=== PATIENT | male | born 1970 | race Caucasian/White ===

== ENCOUNTER → 2017-06-01 10:28 | Outpatient (CLI) | payer BC, SELFPAY ==
--- NOTE | 2017-06-01 10:53 | XR_ITS ---
XR chest 2V COMPARISON: None HISTORY: No history provided TECHNIQUE: PA and lateral chest FINDINGS: The lung rodriguez are well expanded and appear clear of infiltrate. There is borderline cardio megaly without evidence of failure. There is no pleural fluid. The bony thorax appears normal. IMPRESSION: Borderline cardiomegaly, no acute pathology noted
== END ==
PROVIDERS: PCP Psychiatry & Neurology Sleep Medicine; Visit Provider Family Medicine
DX: J40 Bronchitis, not specified as acute or chronic (principal)
CPT/HCPCS: 71046

== ENCOUNTER 2017-08-14 15:11 | Inpatient (IN) ==
[2017-08-14 15:39] LABS: Basophils # 0.1 K/mm3 (0-0.2); Basophils % 1.2 % (0.1-2.0); Eosinophils # 0.2 K/mm3 (0.0-0.4); Eosinophils % 2.8 % (0.1-12.0); Hematocrit 48.1 % (42.0-52.0); Hemoglobin 15.1 g/dL (14.1-18.0); Lymphocytes # 2.6 K/mm3 (0.7-4.5); Lymphocytes % 34.6 K/mm3 (10-50); Mean Corpuscular HGB Conc 31.4 g/dL (31.8-35.4); Mean Corpuscular Hemoglobin 27.6 pg (27.0-31.2); Mean Platelet Volume 8.3 fl (7.4-10.4); Monocytes # 0.4 K/mm3 (0.1-1.0); Monocytes % 4.7 % (1.7-9.3); Neutrophils # 4.3 K/mm3 (1.8-7.8); Neutrophils % 56.8 % (37.0-80.0); Platelet Count 294 K/mm3 (142-424); Red Blood Count 5.46 M/mm3 (4.60-6.20); Red Cell Distribution Width 13.8 % (11.5-17.5); White Blood Count 7.5 K/mm3 (4.8-10.8)
--- NOTE | 2017-08-14 15:41 | Emergency Department Note ---
ED Disposition Clinical Impression: Sinus tachycardia, Pericardial effusion, Pleural effusion, Pneumonia Disposition: Still a Patient Condition on Discharge: Fair Prescriptions: Bisoprol/Hydrochlorothiazide [Bisoprolol-Hctz 5-6.25 mg Tab] 1 each PO DAILY #7 tab Referrals: Kyle Bradford MD [Primary Care Provider] - - Critical Care Critical Care Time: No Attestation: On , the high probability of a clinically significant, sudden or life threatening deterioration of the following system(s) required my full and direct attention, intervention and personal management. The time I documented below is in addition to time spent performing reported procedures but includes the following listed in this critical care notation. Medical Decision Making - Oliver Inquiry Pt receiving controlled substance: No Oliver was queried for this patient: No Vital Signs: 08/14/17 15:17 08/14/17 17:12 Temperature 97.9 F Temperature Source Oral Pulse Rate [Left Radial] 118 H 117 H Respiratory Rate 20 20 Blood Pressure [Right Arm] 148/110 149/116 Blood Pressure Mean [Right Arm] 122 127 Blood Pressure Source [Right Arm] Automatic Cuff Automatic Cuff Blood Pressure Position [Right Arm] Sitting Sitting 02 Sat by Pulse Oximetry 95 92 L Oxygen Delivery Method Room Air Room Air - Lab Data Lab Results 08/14/17 15:19: WBC 7.5, RBC 5.46, Hgb 15.1, Hct 48.1, MCV 88.0, MCH 27.6, MCHC 31.4 L, RDW 13.8, Plt Count 294, MPV 8.3, Neut % (Auto) 56.8, Lymph % (Auto) 34.6, [place] % (Auto) 4.7, Eos % (Auto) 2.8, Baso % (Auto) 1.2, Neut # (Auto) 4.3 , Lymph # (Auto) 2.6, [place] # (Auto) 0.4, Eos # (Auto) 0.2, Baso # (Auto) 0.1 08/14/17 15:19: Sodium 143, Potassium 4.5, Chloride 108 H, Carbon Dioxide 26, Anion Gap 13.5, BUN 15, Creatinine 1.51 H, Estimated Creat Clear 68, Estimated GFR 50 L, Est GFR ( Amer) 61, Glucose 127 H, Calcium 9.2, Troponin I < 0.02 08/14/17 15:19: D-Dimer 660 H* 08/14/17 15:19: Sodium 143, Potassium 4.6, Chloride 108 H, Carbon Dioxide 26, Anion Gap 13.6, BUN 15, Creatinine 1.48 H, Estimated Creat Clear 69, Estimated GFR 52 L, Est GFR ( Amer) 62, Glucose 124 H, Calcium 8.9, Total Bilirubin 0.7, AST 22, ALT 37, Alkaline Phosphatase 90, Total Creatine Kinase 96 , CK-MB (CK-2) 1.9, CK-MB (CK-2) Rel Index 2.0, Troponin I < 0.02, Total Protein 7.1, Albumin 3.8, Globulin 3.3 H, Albumin/Globulin Ratio 1.2, TSH 4.52 H , Free T4 1.03, Plasma/Serum Alcohol < 3 08/14/17 15:19: B-Natriuretic Peptide 1970 H 08/14/17 15:36: Specimen Source Right radial, O2 % room air, ABG pH 7.47 H, ABG pCO2 28.4 L, ABG pO2 61.0 L, ABG HCO3 20.1 L, ABG Total CO2 21.0 L, ABG O2 Saturation 92, ABG Base Excess -3.6 L, New Test Acceptable 08/14/17 15:45: Urine Color Yellow, Urine Appearance Clear, Urine pH 6.0, Ur Specific [place] >= 1.030, Urine Protein 2+, Urine Glucose (UA) Negative, Urine Ketones Negative, Urine Blood 1+, Urine Nitrate Negative, Urine Bilirubin Negative, Urine Urobilinogen 0.2, Ur Leukocyte Esterase Negative, Urine RBC Occasional, Urine WBC Occasional, Ur Squamous Epith Cells Occasional, Urine Bacteria 2+, Fine Granular Casts Occasional, Urine Mucus 3+ 08/14/17 15:45: Urine Opiates Screen Negative, Urine Methadone Screen Negative, Ur Barbituates Screen Negative, Ur Phencyclidine Scrn Negative, Ur Amphetamines Screen Negative, U Benzodiazepines Scrn Negative, Urine Cocaine Screen Negative , U Marijuana (THC) Screen Negative Result diagrams: 08/14/17 15:19 08/14/17 15:19 Orders (Tests/Meds): ED MEDICATIONS Generic Name Dose Route Start Last Admin Trade Name Freq PRN Reason Stop Dose Admin Bisoprolol Fumarate 5 mg 08/15/17 09:00 07/04/18 18:06 Zebeta 5mg Tablet PO 09/14/17 08:59 5 mg DAILY ARIEL Administration Discontinued Medications Generic Name Dose Route Start Last Admin Trade Name Quan PRN Reason Stop Dose Admin Furosemide 20 mg 08/14/17 17:35 08/14/17 18:02 Lasix 20mg/2ml Vial IV 08/14/17 17:36 20 mg ONCE ONE Administration Sodium Chloride 1,000 mls @ 999 mls/hr 08/14/17 16:15 Sod Chlor 0.9% 1000ml Bag IV 08/14/17 17:15 .Q1H1M ARIEL Sodium Chloride 1,000 mls @ 500 mls/hr 08/14/17 16:30 08/14/17 16:26 Sod Chlor 0.9% 1000ml Bag IV 09/13/17 16:29 500 mls/hr .Q2H ARIEL Administration Iopamidol 75 ml 08/14/17 17:58 08/14/17 17:59 [id number]; 75ml Vial IV 08/14/17 17:59 75 ml ONCE ONE Administration Sodium Chloride 10 ml 08/14/17 17:58 08/14/17 17:59 Rad-Saline Flush 10ml Syringe IV 08/14/17 17:59 10 ml ONCE ONE Administration ORDERS Category Date Time Status Urine Culture Stat Micro 08/14/17 15:45 Received 12-lead EKG Request [ECG Request by /Cherise] Stat Y 08/14/17 17:21 Ordered - CT Data CT Scan: Chest Time Received: 19:[address] Reviewed: Yes: I have viewed the radiologist's interpretation Preliminary Findings: Abnormal Findings Narrative: See official report. - ECG Data Tracing #1 Sinus tachycardia 117 left atrial enlargement left axis deviation baseline artifact Q waves in anterior leads with nonspecific T-wave changes. ECG initial impression date: 08/14/17 ECG initial impression time: 15:20 Medical Decision Narrative: [address] Wilson the on-call grocery clerk marking and reviewed the patient clinical presentation lab findings including elevated d-dimer and BNP . Dr. Wilson reviewed the EKGs and he believes that the patient is in sinus tachycardia. Dr Wilson, advised that the patient receives Lasix IV and started on bisoprolol for blood pressure and rate control. 1900 reviewed the results of the CT report of Dr. Wilson who advised the patient to for admission and possible right and left heart catheterization in the morning for pericarditis and myocarditis. [address] [facility] property preservation specialist and who agreed to admit the patient and consult Dr Wilson for cardiac catheterization. 1919 I spoke with the patient and his sister who was agreeable for admission and further medical management and investigative work. Resp/SOB HPI - General Chief Complaint: Shortness of Breath/Dyspnea Stated Complaint: SOB,Heart beat high Time Seen by Provider: 08/14/17 15:20 Mode of Arrival: Ambulatory Limitations: No Limitations Description of Symptoms (Recalled from ER Triage Doc. by RN): Pt states that he has a 120 heart rate and feeling SOA, states this has been happening for 2 months. 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 Some nausea at times, no appetite with sweats. Girlfriend states that she gave him her stroke pill nitro and it did not help - History of Present Illness 46 years old white male former with no significant past medical history. For the past 6 weeks he has been experiencing intermittent episodes of dyspnea, cold sweats, and palpitations. These episodes are triggered by exertion and working in the hot and humid weather. He does not feel the palpitation but he was told about it when he had similar episode and was seen by his primary care physician and told he was having anxiety. Denies having chest pain abdominal pain nausea vomiting diarrhea. Denies having hemoptysis hematemesis coffee- ground emesis bleeding per rectum or melanotic stool. MD Complaint: shortness of breath Onset (ago): minute(s) Consistency/Duration: intermittent Relieving factors: rest Exacerbating factors: exertion Associated symptoms: denies other symptoms, palpitations Treatment prior to arrival: none - Related Data Home Medications Medication Instructions Recorded Confirmed Triamcinolone Acetonide [Nasal 16.9 ml NS DAILY 08/14/17 08/14/17 Allergy] Previous Rx's Medication Instructions Recorded Bisoprol/Hydrochlorothiazide 1 each PO DAILY #7 tab 08/14/17 [Bisoprolol-Hctz 5-6.25 mg Tab] Allergies Allergy/AdvReac Type Severity Reaction Status Date / Time No Known Allergies Allergy Verified 08/14/17 15:27 [facility] History I have reviewed the patient's past medical history: Yes Medical History: Denies:: Diabetes Mellitus Type 1, Diabetes Mellitus Type 2 - Social History Smoking Status: Former smoker Smoking End Date: 3 years ago Alcohol Intake: current Alcohol Intake Frequency:: holidays/special occasions only - Psychiatric History Expresses thoughts of harming self/others: None Suicide Plan Description: No Plan ROS Obtained: Yes All systems reviewed & no additional complaints Physical Exam - General General appearance: alert, in no apparent distress - Head Head exam: atraumatic, normocephalic, normal inspection - Eye Eye exam: Present: normal appearance, PERRL, EOMI - ENT ENT exam: Present: normal exam, normal oropharynx, mucous membranes moist, TM's normal bilaterally, normal external ear exam - Neck Neck exam: Present: normal inspection, full ROM, trachea midline. Absent: meningismus, lymphadenopathy - Chest Chest inspection: Present: normal inspection, symmetric chest wall rise. Absent : tenderness - Respiratory Respiratory exam: Present: normal lung sounds bilaterally. Absent: respiratory distress - Cardiovascular Cardiovascular exam: Present: normal rhythm, tachycardia. Absent: JVD - Abdominal Exam Abdominal exam: Present: soft, normal bowel sounds. Absent: distention, tenderness, guarding - Extremities Exam Extremities exam: Present: normal inspection, full ROM, normal capillary refill. Absent: calf tenderness - Back Exam Back exam: Present: normal inspection. Absent: tenderness - Neurological Exam Neurological exam: Present: alert, oriented X3, CN II-XII intact, normal gait, motor sensory deficit - Psychiatric Psychiatric exam: Present: normal affect, normal mood - Skin Skin exam: Present: warm, dry, intact, normal color - Lymphatic Lymphatic Findings: no adenopathy
[2017-08-14 15:53] LABS: Anion Gap 13.5 mEq/L (5-15); Blood Urea Nitrogen 15 mg/dL (7-18); Calcium 9.2 mg/dL (8.5-10.1); Carbon Dioxide 26 mmol/L (21.0-32.0); Chloride 108 mmol/L (98-107); Glucose 127 mg/dL (74-106); Potassium 4.5 mmoL/L (3.5-5.1); Sodium 143 mmol/L (136-145)
[2017-08-14 15:56] LABS: Microscopic, Urine URINE MICROSCOPIC (MICROSCOPIC)
[2017-08-14 15:58] LABS: Appearance,Urine CLEAR (Clear); Bilirubin,Urine Negative (Negative); Blood, Urine 1+ (Negative); Color,Urine YELLOW (Yellow); Glucose,Urine (UA) Negative (Negative); Ketones,Urine Negative (Negative); Leukocyte Esterase,Urine Negative (Negative); Protein,Urine 2+ (Negative); Specific Gravity, Urine >= 1.030 (1.005-1.030); Urobilinogen,Urine 0.2 EU/dl (0.2)
[2017-08-14 16:08] LABS: Amphetamine/Metha Screen,Urine Negative ng/mL (<1000); Barbiturates Screen,Urine Negative ng/mL (<200); Benzodiazepines Screen,Urine Negative ng/mL (<200); Cannabinoid Screen,Urine Negative ng/mL (<50); Cocaine Screen,Urine Negative ng/mL (<300); Methadone Screen,Urine Negative ng/mL (<300); Opiate Screen,Urine Negative ng/mL (<300); Phencyclidine Screen,Urine Negative ng/mL (<25)
[2017-08-14 16:09] LABS: Mucus,Urine 3+ /lpf; Squamous Epithelial Cell,Urine Occasional #/hpf (0-5); WBC,Urine Occasional #/hpf (0-3)
[2017-08-14 16:10] LABS: Bacteria,Urine 2+ /lpf; Fine Granular Casts,Urine Occasional #/lpf (0); RBC,Urine Occasional #/hpf (0-3)
[2017-08-14 16:18] LABS: Alanine Aminotransferase 37 U/L (12-78); Albumin Level 3.8 gm/dL (3.4-5.0); Albumin/Globulin Ratio 1.2 (1.1-1.8); Alkaline Phosphatase 90 U/L (46-116); Anion Gap 13.6 mEq/L (5-15); Aspartate Amino Transferase 22 U/L (15-37); Bilirubin,Total 0.7 mg/dL (0.2-1.0); Blood Urea Nitrogen 15 mg/dL (7-18); Calcium 8.9 mg/dL (8.5-10.1); Carbon Dioxide 26 mmol/L (21.0-32.0); Chloride 108 mmol/L (98-107); Creatine Kinase 96 U/L (39-308); Free T4 (Free Thyroxine) 1.03 ng/dl (0.76-1.46); Globulin 3.3 gm/dl (1.3-3.2); Glucose 124 mg/dL (74-106); Potassium 4.6 mmoL/L (3.5-5.1); Sodium 143 mmol/L (136-145); Thyroid Stimulating Hormone 4.52 uIU/ml (0.358-3.740); Total Protein,Serum 7.1 gm/dL (6.4-8.2)
[2017-08-14 16:19] LABS: Ethyl Alcohol < 3 mg/dL (0-99)
[2017-08-14 17:34] LABS: ABG Base Excess -3.6 mmol/L (-2.4-2.3); ABG HCO3 20.1 mmhg (22.0-26.0); ABG Oxygen Saturation 92 % (90-100); ABG PCO2 28.4 mmhg (35.0-45.0); ABG PH 7.47 mmol/L (7.35-7.45)
[2017-08-14 17:35] LABS: Oxygen room air %
[2017-08-14 17:36] LABS: Allen's Test Acceptable
--- NOTE | 2017-08-14 22:39 | Progress Note ---
Internal Medicine - PN: Subj *Date: 08/14/17 *Time: 22:35 Interval history: This 46-year-old white male was admitted through the emergency room with some rather vague symptoms. He has not been feeling well for months. He had an episode of pneumonia back in March. He has a 16 pound unexplained weight loss. He tires easily with exertion. He has not had recent cough or congestion or sputum production. He has not had fever. He has not traveled outside the country. Others in his family have not been ill. He has felt some GI distress. His bowels have been normal. He has had no vomiting or diarrhea. His workup in the emergency room showed some patchy infiltrates in the lungs. There was also evidence of a mild pericardial effusion. During the exam he states that he feels cold. Exam Vital signs and Labs for Last 24 Hours: Temp Pulse Resp BP Pulse Ox 97.8 F 106 H 18 154/83 97 08/14/17 20:30 08/14/17 20:30 08/14/17 20:30 08/14/17 20:30 08/14/17 20:30 Laboratory Results - last 24 hr 08/14/17 15:19: WBC 7.5, RBC 5.46, Hgb 15.1, Hct 48.1, MCV 88.0, MCH 27.6, MCHC 31.4 L, RDW 13.8, Plt Count 294, MPV 8.3, Neut % (Auto) 56.8, Lymph % (Auto) 34.6, [place] % (Auto) 4.7, Eos % (Auto) 2.8, Baso % (Auto) 1.2, Neut # (Auto) 4.3 , Lymph # (Auto) 2.6, [place] # (Auto) 0.4, Eos # (Auto) 0.2, Baso # (Auto) 0.1 08/14/17 15:19: Sodium 143, Potassium 4.5, Chloride 108 H, Carbon Dioxide 26, Anion Gap 13.5, BUN 15, Creatinine 1.51 H, Estimated Creat Clear 68, Estimated GFR 50 L, Est GFR ( Amer) 61, Glucose 127 H, Calcium 9.2, Troponin I < 0.02 08/14/17 15:19: D-Dimer 660 H* 08/14/17 15:19: Sodium 143, Potassium 4.6, Chloride 108 H, Carbon Dioxide 26, Anion Gap 13.6, BUN 15, Creatinine 1.48 H, Estimated Creat Clear 69, Estimated GFR 52 L, Est GFR ( Amer) 62, Glucose 124 H, Calcium 8.9, Total Bilirubin 0.7, AST 22, ALT 37, Alkaline Phosphatase 90, Total Creatine Kinase 96 , CK-MB (CK-2) 1.9, CK-MB (CK-2) Rel Index 2.0, Troponin I < 0.02, Total Protein 7.1, Albumin 3.8, Globulin 3.3 H, Albumin/Globulin Ratio 1.2, TSH 4.52 H , Free T4 1.03, Plasma/Serum Alcohol < 3 08/14/17 15:19: B-Natriuretic Peptide 1970 H 08/14/17 15:36: Specimen Source Right radial, O2 % room air, ABG pH 7.47 H, ABG pCO2 28.4 L, ABG pO2 61.0 L, ABG HCO3 20.1 L, ABG Total CO2 21.0 L, ABG O2 Saturation 92, ABG Base Excess -3.6 L, New Test Acceptable 08/14/17 15:45: Urine Color Yellow, Urine Appearance Clear, Urine pH 6.0, Ur Specific [place] >= 1.030, Urine Protein 2+, Urine Glucose (UA) Negative, Urine Ketones Negative, Urine Blood 1+, Urine Nitrate Negative, Urine Bilirubin Negative, Urine Urobilinogen 0.2, Ur Leukocyte Esterase Negative, Urine RBC Occasional, Urine WBC Occasional, Ur Squamous Epith Cells Occasional, Urine Bacteria 2+, Fine Granular Casts Occasional, Urine Mucus 3+ 08/14/17 15:45: Urine Opiates Screen Negative, Urine Methadone Screen Negative, Ur Barbituates Screen Negative, Ur Phencyclidine Scrn Negative, Ur Amphetamines Screen Negative, U Benzodiazepines Scrn Negative, Urine Cocaine Screen Negative , U Marijuana (THC) Screen Negative 08/14/17 20:52: Troponin I 0.03 I & O for Last 24 hours: Intake & Output 08/12/17 08/13/17 08/14/17 08/15/17 11:59 11:59 11:59 11:59 Weight 172 lb - Constitutional no acute distress Comments: He appears pale and a bit clammy. - *Routine HEENT Exam Head: Present: normocephalic Eye: Present: PERRL ENT: Present: mucous membranes moist - *Routine Neck Exam Absent: thyromegaly - *Routine Respiratory Exam Present: decreased breath sounds, CTA bilaterally. Absent: rales, wheezes - *Routine Cardiovascular Exam Present: RRR. Absent: murmur, rubs - *Routine Abdominal Exam Present: soft, normoactive bowel sounds. Absent: tenderness - *Routine Extremities Exam Absent: edema - *Routine Skin Exam Comments: A little cool and clammy - *Routine Neurological Exam Present: alert, oriented X3, normal speech. Absent: sensory deficit, motor deficit, altered mental status, tremors - Routine Psychiatric Exam Present: anxious Assessment and Plan (1) Hypothyroidism Current visit: Yes Status: Acute Category: Medical Code(s): E03.9 - Hypothyroidism, unspecified (2) Weight loss Current visit: Yes Status: Acute Category: Medical Code(s): R63.4 - Abnormal weight loss - Assessment and plan all Dx Assessment and Plan for all problems:: Cardiology evaluation. GI studies also needed regarding weight loss. Liver functions WNL. Will check Amylase, lipase, PSA.
[2017-08-14 23:37] LABS: Amylase 45 U/L (25-125); Lipase 147 u/L (73-393)
[2017-08-15 06:11] LABS: Anion Gap 13.2 mEq/L (5-15); Chol/HDL Ratio 5.4 (1-3.5); Potassium 4.2 mmoL/L (3.5-5.1)
--- NOTE | 2017-08-15 07:25 | Pharmacy Consult Notes ---
[facility] Pharmacy VTE Monitoring - Patient Demographics Admission date: 08/14/17 Report Date: 08/15/17 Time: 07:25 Allergies/Adverse Reactions: Patient Allergies No Known Allergies Allergy (Verified 08/14/17 15:27) Height: 1.83 m Weight: 78.018 kg Patient Problems: Current Active Problems Sinus tachycardia (Acute) Pericardial effusion (Acute) Pleural effusion (Acute) Pneumonia (Acute) Hypothyroidism (Acute) Weight loss (Acute) - VTE Risk Labs: VTE Related Lab Results Hgb 15.1 g/dL (14.1-18.0) 08/14/17 15:19 Hct 48.1 % (42.0-52.0) 08/14/17 15:19 Plt Count 294 K/mm3 (142-424) 08/14/17 15:19 BUN 17 mg/dL (7-18) 08/15/17 05:34 Creatinine 1.40 mg/dL (0.70-1.30) H 08/15/17 05:34 Estimated Creat Clear 74 mL/min (0-300) 08/15/17 05:34 Was VTE Risk Assessment Performed: Yes VTE Score: 3 VTE Risk Level: Low Risk - Prophylaxis VTE Prophylaxis Ordered?: Yes Types of VTE Prophylaxis: TEDS Knee High Location of Applied Device: Bilateral Lower Extremeties - VTE Diagnosis Confirmed Treatment or plan recommended: Continue Current Treatment
--- NOTE | 2017-08-15 08:04 | Consult Report ---
History of Present Illness Consult date: 08/15/17 Requesting physician: Kyle Bradford Consult reason: shortness of breath Chief complaint: SOA Additional Medical History:: 1. History of tobacco use, 1.5 packs per day 25 years, discontinued about 2014 2. Strong family history of coronary artery disease and siblings in their 40s and parents in their 40s 3. Unexplained weight loss 2018, greater than 15 pounds History of present illness: 46-year-old white male presented to the emergency department for 2 month history of increasing shortness of breath with exertional component. Patient also with nocturnal dyspnea and diaphoresis both at rest and with exertion. He has noticed about a 15 pound weight loss or more over the last couple months, unintentionally. He denies any chills, diarrhea, nausea or vomiting. Patient discontinued smoking 3 years ago but has a strong family history of coronary artery disease. He denies any chest pain but does note some pressure or tightness at times. Denies alcohol use in the last 6 weeks and denies any history of IV drug use. Patient was admitted for further evaluation. The ER physician did contact Dr. Wilson who recommended admission with plans for right and left heart catheterization. Patient's troponins have returned normal with some question of pericardial effusion and pneumonia on CT of the chest. EKG showed sinus tachycardia without acute ST segment changes. Some improvement in SOA after the lasix but still noted to have some nocturnal dyspnea last evening. [facility] History Medical History: Denies:: Cancer, Diabetes Mellitus Type 1, Diabetes Mellitus Type 2, MRSA Other Medical History: Reports: Arthritis Other Surgeries: Yes: No Previous Surgery Amputation: No Fractures: No - *Social History Educational Level: Attended College Smoking Status: Former smoker Tobacco Type: cigarettes # Packs/Day (cigarettes): 1 #Yrs smoked (if former smoker): 23 Smoking End Date: 2014 Alcohol Intake: current Alcohol Intake Frequency:: other Occupational Status: employed Housing: other Household Members: children - Psychiatric History Expresses thoughts of harming self/others: None Suicide Plan Description: No Plan *Family Hx:: Cancer, Coronary Artery Disease, Hyperlipidemia, Hypertension, Stroke Meds Home Medications Medication Instructions Recorded Confirmed Type Aspirin 81 mg PO DAILY 08/14/17 08/14/17 History Montelukast Sodium [Montelukast 10 mg PO DAILY 08/14/17 08/14/17 History 10mg Tab] Triamcinolone Acetonide [Nasal 16.9 ml NS DAILY 08/14/17 08/14/17 History Allergy] Allergies Allergy/AdvReac Type Severity Reaction Status Date / Time No Known Allergies Allergy Verified 08/14/17 15:27 Review of Systems - *Cardiovascular Reports shortness of breath, Reports shortness of breath with activity - *Respiratory Reports shortness of breath, Reports shortness of breath with activity - *Gastrointestinal Denies abdominal pain, Denies loose stools - *Genitourinary Denies difficulty urinating - *Musculoskeletal Denies abnormal walking Exam Vital signs and Labs for Last 24 Hours: Temp Pulse Resp BP Pulse Ox 98.1 F 94 H 18 134/95 96 08/15/17 07:44 08/15/17 07:44 08/15/17 07:44 08/15/17 07:44 08/15/17 07:44 Laboratory Results - last 24 hr 08/14/17 15:19: WBC 7.5, RBC 5.46, Hgb 15.1, Hct 48.1, MCV 88.0, MCH 27.6, MCHC 31.4 L, RDW 13.8, Plt Count 294, MPV 8.3, Neut % (Auto) 56.8, Lymph % (Auto) 34.6, [place] % (Auto) 4.7, Eos % (Auto) 2.8, Baso % (Auto) 1.2, Neut # (Auto) 4.3 , Lymph # (Auto) 2.6, [place] # (Auto) 0.4, Eos # (Auto) 0.2, Baso # (Auto) 0.1 08/14/17 15:19: Sodium 143, Potassium 4.5, Chloride 108 H, Carbon Dioxide 26, Anion Gap 13.5, BUN 15, Creatinine 1.51 H, Estimated Creat Clear 68, Estimated GFR 50 L, Est GFR ( Amer) 61, Glucose 127 H, Calcium 9.2, Troponin I < 0.02 08/14/17 15:19: D-Dimer 660 H* 08/14/17 15:19: Sodium 143, Potassium 4.6, Chloride 108 H, Carbon Dioxide 26, Anion Gap 13.6, BUN 15, Creatinine 1.48 H, Estimated Creat Clear 69, Estimated GFR 52 L, Est GFR ( Amer) 62, Glucose 124 H, Calcium 8.9, Total Bilirubin 0.7, AST 22, ALT 37, Alkaline Phosphatase 90, Total Creatine Kinase 96 , CK-MB (CK-2) 1.9, CK-MB (CK-2) Rel Index 2.0, Troponin I < 0.02, Total Protein 7.1, Albumin 3.8, Globulin 3.3 H, Albumin/Globulin Ratio 1.2, TSH 4.52 H , Free T4 1.03, Plasma/Serum Alcohol < 3 08/14/17 15:19: B-Natriuretic Peptide 1970 H 08/14/17 15:36: Specimen Source Right radial, O2 % room air, ABG pH 7.47 H, ABG pCO2 28.4 L, ABG pO2 61.0 L, ABG HCO3 20.1 L, ABG Total CO2 21.0 L, ABG O2 Saturation 92, ABG Base Excess -3.6 L, New Test Acceptable 08/14/17 15:45: Urine Color Yellow, Urine Appearance Clear, Urine pH 6.0, Ur Specific [place] >= 1.030, Urine Protein 2+, Urine Glucose (UA) Negative, Urine Ketones Negative, Urine Blood 1+, Urine Nitrate Negative, Urine Bilirubin Negative, Urine Urobilinogen 0.2, Ur Leukocyte Esterase Negative, Urine RBC Occasional, Urine WBC Occasional, Ur Squamous Epith Cells Occasional, Urine Bacteria 2+, Fine Granular Casts Occasional, Urine Mucus 3+ 08/14/17 15:45: Urine Opiates Screen Negative, Urine Methadone Screen Negative, Ur Barbituates Screen Negative, Ur Phencyclidine Scrn Negative, Ur Amphetamines Screen Negative, U Benzodiazepines Scrn Negative, Urine Cocaine Screen Negative , U Marijuana (THC) Screen Negative 08/14/17 20:52: Troponin I 0.03 08/14/17 23:05: Amylase 45, Lipase 147 08/15/17 01:30: Troponin I 0.02 08/15/17 05:34: Sodium 136, Potassium 4.2, Chloride 105, Carbon Dioxide 22, Anion Gap 13.2, BUN 17, Creatinine 1.40 H, Estimated Creat Clear 74, Estimated GFR 55 L, Est GFR ( Amer) 67, Glucose 117 H, Calcium 9.0, Magnesium 2.1, Triglycerides 156, Cholesterol 151, LDL Cholesterol 92, VLDL Cholesterol 31, HDL Cholesterol 28, Cholesterol/HDL Ratio 5.4 H I & O for Last 24 hours: Intake & Output 08/12/17 08/13/17 08/14/17 08/15/17 11:59 11:59 11:59 11:59 Output Total 1100 / 1100 Balance -1100 / -1100 Weight 172 lb - *Routine Neck Exam Absent: JVD, carotid bruit - *Routine Respiratory Exam Present: rales - *Routine Cardiovascular Exam Present: RRR. Absent: murmur, gallop, rubs - *Routine Abdominal Exam Absent: tenderness - *Routine Extremities Exam Absent: edema - *Routine Neurological Exam Present: alert, oriented X3, moving all extremities Assessment and Plan (1) Hypothyroidism Current visit: Yes Status: Acute Category: Medical Code(s): E03.9 - Hypothyroidism, unspecified (2) Weight loss Current visit: Yes Status: Acute Category: Medical Code(s): R63.4 - Abnormal weight loss (3) PATEL (dyspnea on exertion) Current visit: Yes Status: Acute Category: Medical Code(s): R06.09 - Other forms of dyspnea (4) Paroxysmal nocturnal dyspnea Current visit: Yes Status: Acute Category: Medical Code(s): R06.00 - Dyspnea, unspecified (5) Pericardial effusion Current visit: Yes Status: Acute Category: Medical Code(s): I31.3 - Pericardial effusion (noninflammatory) (6) Sinus tachycardia Current visit: Yes Status: Acute Category: Medical Code(s): R00.0 - Tachycardia, unspecified - Assessment and plan all Dx Assessment and Plan for all problems:: 1. Will obtain an echocardiogram to evaluate left ventricular size, function and pericardial effusion with possible tamponade physiology. 2. In light of the patient's cardiac risk factors including 40 year pack history and strong family history of heart disease in their 40s in light of the patient's exertional dyspnea and nocturnal dyspnea, would recommend proceeding with right and left heart catheterization for further evaluation. 3. Pt is on antibiotics for infiltrate on CXR and CT. Afebrile this admission.
--- NOTE | 2017-08-15 08:31 | History & Physical Report ---
*Admission Date: 08/14/17 <Sonam Parnell 08/15/17 08:35> *Chief complaint: shortness of breath <Sonam Parnell 08/15/17 08:35> *History of present illness: Mr. Villegas is a 46-year-old white male who was admitted through the emergency room with some rather vague symptoms. He has not been feeling well for months. He had an episode of pneumonia back in March. He has a 16 pound unexplained weight loss. He tires easily with exertion. He has not had recent cough or congestion or sputum production but he has been SOA. He has not had fever. He has not traveled outside the country. Others in his family have not been ill. He has felt some GI distress. His bowels have been normal. He has had no vomiting or diarrhea. His workup in the emergency room showed some patchy infiltrates in the lungs. There was also evidence of a mild pericardial effusion. He was admitted for further evaluation and treatment. <Sonam Parnell 08/15/17 08:35> [facility] History Medical History: Denies:: Cancer, Diabetes Mellitus Type 1, Diabetes Mellitus Type 2, MRSA < Sonam Parnell 08/15/17 08:35> Other Medical History: Reports: Arthritis <Sonam Parnell 08/15/17 08:35> Comment: allergies <Sonam Parnell 08/15/17 08:35> Other Surgeries: Yes: No Previous Surgery <Sonam Parnell 08/15/17 08:35> Amputation: No <Sonam Parnell 08/15/17 08:35> Fractures: No <Sonam Parnell 08/15/17 08:35> - *Social History Educational Level: Attended College <Sonam Parnell 08/15/17 08:35> Smoking Status: Former smoker <Sonam Parnell 08/15/17 08:35> Tobacco Type: cigarettes <Sonam Parnell 08/15/17 08:35> # Packs/Day (cigarettes): 1 <Sonam Parnell 08/15/17 08:35> #Yrs smoked (if former smoker): 23 <Sonam Parnell 08/15/17 08:35> Smoking End Date: 2014 <Sonam Parnell 08/15/17 08:35> Alcohol Intake: current <Sonam Parnell 08/15/17 08:35> Alcohol Intake Frequency:: other <Rg Parnell08/15/17 08:35> Occupational Status: employed <Sonam Parnell 08/15/17 08:35> Housing: other <Rg Parnella 08/15/17 08:35> Household Members: children <Sonam Parnell 08/15/17 08:35> - Psychiatric History Expresses thoughts of harming self/others: None <Sonam Parnell 08/15/17 08: 35> Suicide Plan Description: No Plan <Sonam Parnell 08/15/17 08:35> *Family Hx:: Cancer, Coronary Artery Disease, Hyperlipidemia, Hypertension, Stroke <Rg Parnella 08/15/17 08:35> Review of Systems - Constitutional Reports weakness, Reports weight loss <Rg Parnella 08/15/17 08:35> - Eyes Denies blurry vision, Denies double vision <Rg Parnella 08/15/17 08:35> - ENT Denies nasal congestion, Denies sore throat <Rg Parnella 08/15/17 08:35> - *Cardiovascular Reports shortness of breath with activity, Denies chest pain, Denies generalized swelling <ParmjitSonam 08/15/17 08:35> - *Respiratory Reports shortness of breath, Denies chest congestion, Denies cough <Parmjit Sonam 08/15/17 08:35> - *Gastrointestinal Denies abdominal pain, Denies loose stools, Denies nausea, Denies vomiting < ParmjitSonam 08/15/17 08:35> - *Genitourinary Denies difficulty urinating, Denies painful urination <ParmjitSonam 08:35> - *Musculoskeletal Denies joint pain <ParmjitSonam 08/15/17 08:35> - *Neurologic Reports weakness, Denies abnormal walking, Denies headache(s), Denies dizziness <Rg Parnella 08/15/17 08:35> Meds Home Medications Medication Instructions Recorded Confirmed Type Triamcinolone Acetonide [Nasal 1 spray NS DAILY 08/14/17 08/15/17 History Allergy] <Kyle Bradford - 08/15/17 15:00> Allergies Allergy/AdvReac Type Severity Reaction Status Date / Time No Known Allergies Allergy Verified 08/14/17 15:27 <Kyle Bradford - 08/15/17 15:00> Exam Vital signs and Labs for Last 24 Hours: Temp Pulse Resp BP Pulse Ox 98.1 F 83 16 118/84 97 08/15/17 07:44 08/15/17 14:41 08/15/17 13:20 08/15/17 13:20 08/15/17 13:20 Laboratory Results - last 24 hr 08/14/17 15:19: WBC 7.5, RBC 5.46, Hgb 15.1, Hct 48.1, MCV 88.0, MCH 27.6, MCHC 31.4 L, RDW 13.8, Plt Count 294, MPV 8.3, Neut % (Auto) 56.8, Lymph % (Auto) 34.6, [place] % (Auto) 4.7, Eos % (Auto) 2.8, Baso % (Auto) 1.2, Neut # (Auto) 4.3 , Lymph # (Auto) 2.6, [place] # (Auto) 0.4, Eos # (Auto) 0.2, Baso # (Auto) 0.1 08/14/17 15:19: Sodium 143, Potassium 4.5, Chloride 108 H, Carbon Dioxide 26, Anion Gap 13.5, BUN 15, Creatinine 1.51 H, Estimated Creat Clear 68, Estimated GFR 50 L, Est GFR ( Amer) 61, Glucose 127 H, Calcium 9.2, Troponin I < 0.02 08/14/17 15:19: D-Dimer 660 H* 08/14/17 15:19: Sodium 143, Potassium 4.6, Chloride 108 H, Carbon Dioxide 26, Anion Gap 13.6, BUN 15, Creatinine 1.48 H, Estimated Creat Clear 69, Estimated GFR 52 L, Est GFR ( Amer) 62, Glucose 124 H, Calcium 8.9, Total Bilirubin 0.7, AST 22, ALT 37, Alkaline Phosphatase 90, Total Creatine Kinase 96 , CK-MB (CK-2) 1.9, CK-MB (CK-2) Rel Index 2.0, Troponin I < 0.02, Total Protein 7.1, Albumin 3.8, Globulin 3.3 H, Albumin/Globulin Ratio 1.2, TSH 4.52 H , Free T4 1.03, Plasma/Serum Alcohol < 3 08/14/17 15:19: B-Natriuretic Peptide 1970 H 08/14/17 15:36: Specimen Source Right radial, O2 % room air, ABG pH 7.47 H, ABG pCO2 28.4 L, ABG pO2 61.0 L, ABG HCO3 20.1 L, ABG Total CO2 21.0 L, ABG O2 Saturation 92, ABG Base Excess -3.6 L, New Test Acceptable 08/14/17 15:45: Urine Color Yellow, Urine Appearance Clear, Urine pH 6.0, Ur Specific [place] >= 1.030, Urine Protein 2+, Urine Glucose (UA) Negative, Urine Ketones Negative, Urine Blood 1+, Urine Nitrate Negative, Urine Bilirubin Negative, Urine Urobilinogen 0.2, Ur Leukocyte Esterase Negative, Urine RBC Occasional, Urine WBC Occasional, Ur Squamous Epith Cells Occasional, Urine Bacteria 2+, Fine Granular Casts Occasional, Urine Mucus 3+ 08/14/17 15:45: Urine Opiates Screen Negative, Urine Methadone Screen Negative, Ur Barbituates Screen Negative, Ur Phencyclidine Scrn Negative, Ur Amphetamines Screen Negative, U Benzodiazepines Scrn Negative, Urine Cocaine Screen Negative , U Marijuana (THC) Screen Negative 08/14/17 20:52: Troponin I 0.03 08/14/17 23:05: Amylase 45, Lipase 147 08/15/17 01:30: Troponin I 0.02 08/15/17 05:34: Sodium 136, Potassium 4.2, Chloride 105, Carbon Dioxide 22, Anion Gap 13.2, BUN 17, Creatinine 1.40 H, Estimated Creat Clear 74, Estimated GFR 55 L, Est GFR ( Amer) 67, Glucose 117 H, Calcium 9.0, Magnesium 2.1, Triglycerides 156, Cholesterol 151, LDL Cholesterol 92, VLDL Cholesterol 31, HDL Cholesterol 28, Cholesterol/HDL Ratio 5.4 H 08/15/17 08:30: Troponin I < 0.02 08/15/17 11:57: ABG O2 Sat (Measured) 58.3 L, POC VBG O2 Sat (Mark) 54.6 L <Suzette,Kyle Jose - 08/15/17 15:00> Temp Pulse Resp BP Pulse Ox 98.1 F 94 H 18 134/95 96 08/15/17 07:44 08/15/17 07:44 08/15/17 07:44 08/15/17 07:44 08/15/17 07:44 Laboratory Results - last 24 hr 08/14/17 15:19: WBC 7.5, RBC 5.46, Hgb 15.1, Hct 48.1, MCV 88.0, MCH 27.6, MCHC 31.4 L, RDW 13.8, Plt Count 294, MPV 8.3, Neut % (Auto) 56.8, Lymph % (Auto) 34.6, [place] % (Auto) 4.7, Eos % (Auto) 2.8, Baso % (Auto) 1.2, Neut # (Auto) 4.3 , Lymph # (Auto) 2.6, [place] # (Auto) 0.4, Eos # (Auto) 0.2, Baso # (Auto) 0.1 08/14/17 15:19: Sodium 143, Potassium 4.5, Chloride 108 H, Carbon Dioxide 26, Anion Gap 13.5, BUN 15, Creatinine 1.51 H, Estimated Creat Clear 68, Estimated GFR 50 L, Est GFR ( Amer) 61, Glucose 127 H, Calcium 9.2, Troponin I < 0.02 08/14/17 15:19: D-Dimer 660 H* 08/14/17 15:19: Sodium 143, Potassium 4.6, Chloride 108 H, Carbon Dioxide 26, Anion Gap 13.6, BUN 15, Creatinine 1.48 H, Estimated Creat Clear 69, Estimated GFR 52 L, Est GFR ( Amer) 62, Glucose 124 H, Calcium 8.9, Total Bilirubin 0.7, AST 22, ALT 37, Alkaline Phosphatase 90, Total Creatine Kinase 96 , CK-MB (CK-2) 1.9, CK-MB (CK-2) Rel Index 2.0, Troponin I < 0.02, Total Protein 7.1, Albumin 3.8, Globulin 3.3 H, Albumin/Globulin Ratio 1.2, TSH 4.52 H , Free T4 1.03, Plasma/Serum Alcohol < 3 08/14/17 15:19: B-Natriuretic Peptide 1970 H 08/14/17 15:36: Specimen Source Right radial, O2 % room air, ABG pH 7.47 H, ABG pCO2 28.4 L, ABG pO2 61.0 L, ABG HCO3 20.1 L, ABG Total CO2 21.0 L, ABG O2 Saturation 92, ABG Base Excess -3.6 L, New Test Acceptable 08/14/17 15:45: Urine Color Yellow, Urine Appearance Clear, Urine pH 6.0, Ur Specific [place] >= 1.030, Urine Protein 2+, Urine Glucose (UA) Negative, Urine Ketones Negative, Urine Blood 1+, Urine Nitrate Negative, Urine Bilirubin Negative, Urine Urobilinogen 0.2, Ur Leukocyte Esterase Negative, Urine RBC Occasional, Urine WBC Occasional, Ur Squamous Epith Cells Occasional, Urine Bacteria 2+, Fine Granular Casts Occasional, Urine Mucus 3+ 08/14/17 15:45: Urine Opiates Screen Negative, Urine Methadone Screen Negative, Ur Barbituates Screen Negative, Ur Phencyclidine Scrn Negative, Ur Amphetamines Screen Negative, U Benzodiazepines Scrn Negative, Urine Cocaine Screen Negative , U Marijuana (THC) Screen Negative 08/14/17 20:52: Troponin I 0.03 08/14/17 23:05: Amylase 45, Lipase 147 08/15/17 01:30: Troponin I 0.02 08/15/17 05:34: Sodium 136, Potassium 4.2, Chloride 105, Carbon Dioxide 22, Anion Gap 13.2, BUN 17, Creatinine 1.40 H, Estimated Creat Clear 74, Estimated GFR 55 L, Est GFR ( Amer) 67, Glucose 117 H, Calcium 9.0, Magnesium 2.1, Triglycerides 156, Cholesterol 151, LDL Cholesterol 92, VLDL Cholesterol 31, HDL Cholesterol 28, Cholesterol/HDL Ratio 5.4 H <Sonam Parnell - 08/15/17 08:35> I & O for Last 24 hours: Intake & Output 08/13/17 08/14/17 08/15/17 08/16/17 11:59 11:59 11:59 11:59 Output Total 1100 / 1100 Balance -1100 / -1100 Weight 172 lb <Kyle Bradford - 08/15/17 15:00> Intake & Output 08/12/17 08/13/17 08/14/17 08/15/17 11:59 11:59 11:59 11:59 Output Total 1100 / 1100 Balance -1100 / -1100 Weight 172 [facility] 08:35> - Constitutional no acute distress <ParmjitSonam 08/15/17 08:35> - *Routine HEENT Exam Head: Present: normocephalic, atraumatic [facility] Eye: Present: EOMI [facility] 08/15/17 08:35> ENT: Present: mucous membranes dry [facility] 08/[facility] 08:35> - *Routine Neck Exam Present: supple, full ROM <[facility] 08/15/17 08:35> - *Routine Respiratory Exam Present: CTA bilaterally [facility] 08/15[facility]17 08:35> - *Routine Cardiovascular Exam Present: RRR <[facility] 08/15/17 08:35> - *Routine Abdominal Exam Present: soft, normoactive bowel sounds. Absent: tenderness [facility] 08/15/17 08:35> - *Routine Extremities Exam Absent: edema [facility] 08/15[facility]17 08:35> - *Routine Skin Exam Present: intact [facility] 08/15[facility] 08:35> - *Routine Neurological Exam Present: alert, oriented X3 <[facility] 08/15/17 08:35> H&P: Result - Labs Labs: Short CBC 08/14/17 Range/Units 15:19 WBC 7.5 (4.8-10.8) K/mm3 Hgb 15.1 (14.1-18.0) g/dL Hct 48.1 (42.0-52.0) % Plt Count 294 (142-424) K/mm3 BMP 08/14/17 08/14/17 08/15/17 15:19 15:19 05:34 Sodium 143 143 136 Potassium 4.5 4.6 4.2 Chloride 108 H 108 H 105 Carbon Dioxide 26 26 22 BUN 15 15 17 Creatinine 1.51 H 1.48 H 1.40 H Glucose 127 H 124 H 117 H Calcium 9.2 8.9 9.0 Cardiac Enzymes 08/14/17 08/14/17 08/14/17 Range/Units 15:19 15:19 20:52 Total Creatine Kinase 96 (39-308) U/L CK-MB (CK-2) 1.9 (0.0-3.6) ng/ml Troponin I < 0.02 < 0.02 0.03 (0.00-0.06) ng/ml 08/15/17 08/15/17 Range/Units 01:30 08:30 Total Creatine Kinase (39-308) U/L CK-MB (CK-2) (0.0-3.6) ng/ml Troponin I 0.02 < 0.02 (0.00-0.06) ng/ml Liver Function 08/14/17 Range/Units 15:19 Total Bilirubin 0.7 (0.2-1.0) mg/dL AST 22 (15-37) U/L ALT 37 (12-78) U/L Alkaline Phosphatase 90 (46-116) U/L Albumin 3.8 (3.4-5.0) gm/dL Urine 08/14/17 Range/Units 15:45 Urine Color Yellow (Yellow) Urine Appearance Clear (Clear) Urine pH 6.0 (5.0-8.5) Ur Specific [place] >= 1.030 (1.005-1.030) Urine Protein 2+ (Negative) Urine Glucose (UA) Negative (Negative) <Kyle Bradford - 08/15/17 15:00> Short CBC 08/14/17 Range/Units 15:19 WBC 7.5 (4.8-10.8) K/mm3 Hgb 15.1 (14.1-18.0) g/dL Hct 48.1 (42.0-52.0) % Plt Count 294 (142-424) K/mm3 BMP 08/14/17 08/14/17 08/15/17 15:19 15:19 05:34 Sodium 143 143 136 Potassium 4.5 4.6 4.2 Chloride 108 H 108 H 105 Carbon Dioxide 26 26 22 BUN 15 15 17 Creatinine 1.51 H 1.48 H 1.40 H Glucose 127 H 124 H 117 H Calcium 9.2 8.9 9.0 Cardiac Enzymes 08/14/17 08/14/17 08/14/17 Range/Units 15:19 15:19 20:52 Total Creatine Kinase 96 (39-308) U/L CK-MB (CK-2) 1.9 (0.0-3.6) ng/ml Troponin I < 0.02 < 0.02 0.03 (0.00-0.06) ng/ml 08/15/17 Range/Units 01:30 Total Creatine Kinase (39-308) U/L CK-MB (CK-2) (0.0-3.6) ng/ml Troponin I 0.02 (0.00-0.06) ng/ml Liver Function 08/14/17 Range/Units 15:19 Total Bilirubin 0.7 (0.2-1.0) mg/dL AST 22 (15-37) U/L ALT 37 (12-78) U/L Alkaline Phosphatase 90 (46-116) U/L Albumin 3.8 (3.4-5.0) gm/dL Urine 08/14/17 Range/Units 15:45 Urine Color Yellow (Yellow) Urine Appearance Clear (Clear) Urine pH 6.0 (5.0-8.5) Ur Specific [place] >= 1.030 (1.005-1.030) Urine Protein 2+ (Negative) Urine Glucose (UA) Negative (Negative) <Sonam Parnell - 08/15/17 08:35> - Impressions CXR - CHF with interstitial edema and small bilateral effusions with right lower lobe pneumonia versus edema. Nonspecific nodular opacity left lung base. Suggest follow-up radiograph to ensure this represents a true finding Chest CTA - 1. No evidence of pulmonary embolus or aortic aneurysm. 2. Cardiomegaly with bilateral pleural effusions and pericardial effusion. 3. Patchy infiltrate in the left lower lobe <Sonam Parnell - 08/15/17 08:35> Assessment and Plan (1) Hypothyroidism Current visit: Yes Status: Acute Category: Medical Code(s): E03.9 - Hypothyroidism, unspecified (2) Weight loss Current visit: Yes Status: Acute Category: Medical Code(s): R63.4 - Abnormal weight loss (3) PATEL (dyspnea on exertion) Current visit: Yes Status: Acute Category: Medical Code(s): R06.09 - Other forms of dyspnea (4) Paroxysmal nocturnal dyspnea Current visit: Yes Status: Acute Category: Medical Code(s): R06.00 - Dyspnea, unspecified (5) Pericardial effusion Current visit: Yes Status: Acute Category: Medical Code(s): I31.3 - Pericardial effusion (noninflammatory) (6) Sinus tachycardia Current visit: Yes Status: Acute Category: Medical Code(s): R00.0 - Tachycardia, unspecified (7) Congestive heart failure Current visit: Yes Status: Acute Category: Medical Code(s): I50.9 - Heart failure, unspecified (8) Pleural effusion Current visit: Yes Status: Acute Category: Medical Code(s): J90 - Pleural effusion, not elsewhere classified (9) Pneumonia Current visit: Yes Status: Acute Category: Medical Code(s): J18.9 - Pneumonia, unspecified organism <Sonam Parnell - 08/15/17 08:26> (1) Congestive heart failure Current visit: Yes Status: Acute Category: Medical Code(s): I50.9 - Heart failure, unspecified (2) Cardiomyopathy Current visit: Yes Status: Acute Category: Medical Code(s): I42.9 - Cardiomyopathy, unspecified (3) Hypothyroidism Current visit: Yes Status: Acute Category: Medical Code(s): E03.9 - Hypothyroidism, unspecified (4) Weight loss Current visit: Yes Status: Acute Category: Medical Code(s): R63.4 - Abnormal weight loss (5) PATEL (dyspnea on exertion) Current visit: Yes Status: Acute Category: Medical Code(s): R06.09 - Other forms of dyspnea (6) Paroxysmal nocturnal dyspnea Current visit: Yes Status: Acute Category: Medical Code(s): R06.00 - Dyspnea, unspecified (7) Pericardial effusion Current visit: Yes Status: Acute Category: Medical Code(s): I31.3 - Pericardial effusion (noninflammatory) (8) Sinus tachycardia Current visit: Yes Status: Acute Category: Medical Code(s): R00.0 - Tachycardia, unspecified (9) Pleural effusion Current visit: Yes Status: Acute Category: Medical Code(s): J90 - Pleural effusion, not elsewhere classified (10) Pneumonia Current visit: Yes Status: Acute Category: Medical Code(s): J18.9 - Pneumonia, unspecified organism <Kyle Bradford - 08/15/17 15:00> - Assessment and plan all Dx Assessment and Plan for all problems:: Patient seen and examined this AM. He appears comfortable. His preliminary echo show EF ~20%. His pulmonary symptoms most likely are cardiac related and not pneumonia. He is to have angiogram today tp r/o ischemic etiologies. <Kyle Bradford - 08/15/17 15:00> Cardiology has seen the patient and they have ordered an echo as well as a heart cath. Will continue antibiotics for pneumonia. <Sonam Parnell - 08/15/17 08:35>
--- NOTE | 2017-08-15 12:39 | Cardiology Report ---
PROCEDURE: 2-D M-mode and color Doppler study INDICATIONS FOR THE TEST: Chest pain COPD Heart Murmur Tobacco SmokingEX Palpitations Fatigue Syncope Edema HypertensionXDiabetes Mellitus Rheumatic Fever SOBXDOEXObesity Hyperlipidemia Family History HD Additional History PL EFF PATIENT INFORMATION HEIGHT: 74 WEIGHT:172 GENDER: Male B/P:149/95 2-D/M-MODE INTERPRETATION: 2-D MEASUREMENTS OBSERVED VALUES IN CMS Right Ventricular Dimension (RVDd) 2.6 Interventricular Septum (Thickness)(IVsd) .8 Left Ventricular Internal Dimensions(LVIDd) 7.4 Left Ventricular Posterior Wall (Thickness)(LVPWd) .7 Aortic Root 2.9 Aortic Cusp Separation 1.7 Left Atrial Dimensions (LAD) 4.5 2D 1. Left atrium is moderately enlarged, left ventricle is moderately dilated, severely reduced left ventricular systolic function, visually estimated ejection fraction 15-20% left ventricle severely is globally hypokinetic. 2. The right atrium and right ventricle are mildly enlarged with mild reduced contractility. 3. The aortic valve is minimally thickened and fibrosed. 4. The mitral and tricuspid valvular grossly normal. 5. The pulmonic valve is poorly visualized. 6. There is trivial pericardial effusion and large left-sided pleural effusion seen. DOPPLER INTERROGATION: Doppler interrogation of the aortic, mitral and tricuspid valvular presence of moderate mitral and mild tricuspid regurgitation, tricuspid regurgitant jet velocity is insufficient for calculation of the right ventricular systolic pressure, grade 1 diastolic dysfunction seen with tissue Doppler evidence of raised left atrial pressure, inferior vena cava is dilated without significant inspiratory collapse. CONCLUSION: 1. Moderately enlarged left atrium, dilated left ventricle, severely reduced left ventricular systolic function, visually estimated ejection fraction of 15-20% %, left ventricle is globally hypokinetic. Doppler evidence of raised left atrial pressure. 2. Moderate mitral and mild tricuspid regurgitation 3. Trivial pericardial effusion and large left-sided pleural effusion seen.
[2017-08-16 06:22] LABS: Calcium 8.6 mg/dL (8.5-10.1)
--- NOTE | 2017-08-16 08:24 | Progress Note ---
<Sonam Parnell - Last Filed: 08/16/17 08:22> Internal Medicine - PN: Subj *Date: 08/16/17 *Time: 08:22 Interval history: Patient states he is feeling well today. He denies any pain. He slept well last night and is eating well. He had a heart cath which showed no blockages. He did have severe heart failure. 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 Exam Vital signs and Labs for Last 24 Hours: Temp Pulse Resp BP Pulse Ox 98.2 F 81 16 128/77 93 L 08/16/17 04:00 08/16/17 04:00 08/16/17 04:00 08/16/17 04:00 08/16/17 04:00 Laboratory Results - last 24 hr 08/15/17 08:30: Troponin I < 0.02 08/15/17 11:57: ABG O2 Sat (Measured) 58.3 L, POC VBG O2 Sat (Mark) 54.6 L 08/16/17 05:28: Sodium 138, Potassium 4.0, Chloride 102, Carbon Dioxide 29 D, Anion Gap 11.0, BUN 23 H D, Creatinine 1.55 H, Estimated Creat Clear 67, Estimated GFR 49 L, Est GFR ( Amer) 59, Glucose 88 D, Calcium 8.6 I & O for Last 24 hours: Intake & Output 08/13/17 08/14/17 08/15/17 08/16/17 11:59 11:59 11:59 11:59 Intake Total 1100 / 1100 Output Total 1100 / 1100 Balance -1100 / -1100 1100 / 1100 Weight 172 lb Microbiology Reports for the Last 24 Hours: Microbiology 08/14/17 15:45 Urine,Clean Catch Urine Culture - Preliminary NO GROWTH AFTER 24 HOURS - Constitutional no acute distress - *Routine Respiratory Exam Present: CTA bilaterally - *Routine Cardiovascular Exam Present: RRR - *Routine Abdominal Exam Present: soft, normoactive bowel sounds. Absent: tenderness - *Routine Extremities Exam Absent: edema Assessment and Plan (1) Congestive heart failure Current visit: Yes Status: Acute Category: Medical Code(s): I50.9 - Heart failure, unspecified (2) Cardiomyopathy Current visit: Yes Status: Acute Category: Medical Code(s): I42.9 - Cardiomyopathy, unspecified (3) Hypothyroidism Current visit: Yes Status: Acute Category: Medical Code(s): E03.9 - Hypothyroidism, unspecified (4) Weight loss Current visit: Yes Status: Acute Category: Medical Code(s): R63.4 - Abnormal weight loss (5) PATEL (dyspnea on exertion) Current visit: Yes Status: Acute Category: Medical Code(s): R06.09 - Other forms of dyspnea (6) Paroxysmal nocturnal dyspnea Current visit: Yes Status: Acute Category: Medical Code(s): R06.00 - Dyspnea, unspecified (7) Pericardial effusion Current visit: Yes Status: Acute Category: Medical Code(s): I31.3 - Pericardial effusion (noninflammatory) (8) Sinus tachycardia Current visit: Yes Status: Acute Category: Medical Code(s): R00.0 - Tachycardia, unspecified (9) Pleural effusion Current visit: Yes Status: Acute Category: Medical Code(s): J90 - Pleural effusion, not elsewhere classified (10) Pneumonia Current visit: Yes Status: Acute Category: Medical Code(s): J18.9 - Pneumonia, unspecified organism - Assessment and plan all Dx Assessment and Plan for all problems:: Patient is awaiting a LifeVest at this time due to an EF of 15-20%. Cardiology felt if he got the LifeVest today he could be discharged home <Kyle Bradford - Last Filed: 08/16/17 08:47> Internal Medicine - PN: Subj *Date: 08/16/17 *Time: 08:42 Exam Vital signs and Labs for Last 24 Hours: Temp Pulse Resp BP Pulse Ox 98.0 F 68 16 130/80 93 L 08/16/17 08:00 08/16/17 08:00 08/16/17 08:00 08/16/17 08:00 08/16/17 08:00 Laboratory Results - last 24 hr 08/15/17 08:30: Troponin I < 0.02 08/15/17 11:57: ABG O2 Sat (Measured) 58.3 L, POC VBG O2 Sat (Mark) 54.6 L 08/16/17 05:28: Sodium 138, Potassium 4.0, Chloride 102, Carbon Dioxide 29 D, Anion Gap 11.0, BUN 23 H D, Creatinine 1.55 H, Estimated Creat Clear 67, Estimated GFR 49 L, Est GFR ( Amer) 59, Glucose 88 D, Calcium 8.6 I & O for Last 24 hours: Intake & Output 08/13/17 08/14/17 08/15/17 08/16/17 11:59 11:59 11:59 11:59 Intake Total 1580 / 1580 Output Total 1100 / 1100 Balance -1100 / -1100 1580 / 1580 Weight 172 lb Microbiology Reports for the Last 24 Hours: Microbiology 08/14/17 15:45 Urine,Clean Catch Urine Culture - Preliminary NO GROWTH AFTER 24 HOURS Assessment and Plan (1) Viral cardiomyopathy Current visit: Yes Status: Acute Category: Medical Code(s): B33.24 - Viral cardiomyopathy (2) Congestive heart failure Current visit: Yes Status: Acute Category: Medical Code(s): I50.9 - Heart failure, unspecified (3) Hypothyroidism Current visit: Yes Status: Acute Category: Medical Code(s): E03.9 - Hypothyroidism, unspecified (4) Weight loss Current visit: Yes Status: Acute Category: Medical Code(s): R63.4 - Abnormal weight loss (5) Ventricular tachyarrhythmia Current visit: Yes Status: Acute Category: Medical Code(s): I47.2 - Ventricular tachycardia - Assessment and plan all Dx Assessment and Plan for all problems:: Patient seen and examined. Will repeat CXR today. Anticipate improvement in previous infiltrate after diuresis. Doubt pneumonia. Will d/c antibiotics. Awaiting approval of LifeVest
--- NOTE | 2017-08-16 08:49 | Progress Note ---
Subjective Date: 08/16/17 Time: 08:44 Principal diagnosis: CHF, Cardiomyopathy Interval history: No complaints overnight except leg cramps. Slept through the night for the first time recently. No chest pains. Awaiting LifeVest. Exam Vital signs and Labs for Last 24 Hours: Temp Pulse Resp BP Pulse Ox 98.0 F 68 16 130/80 93 L 08/16/17 08:00 08/16/17 08:00 08/16/17 08:00 08/16/17 08:00 08/16/17 08:00 Laboratory Results - last 24 hr 08/15/17 08:30: Troponin I < 0.02 08/15/17 11:57: ABG O2 Sat (Measured) 58.3 L, POC VBG O2 Sat (Mark) 54.6 L 08/16/17 05:28: Sodium 138, Potassium 4.0, Chloride 102, Carbon Dioxide 29 D, Anion Gap 11.0, BUN 23 H D, Creatinine 1.55 H, Estimated Creat Clear 67, Estimated GFR 49 L, Est GFR ( Amer) 59, Glucose 88 D, Calcium 8.6 I & O for Last 24 hours: Intake & Output 08/13/17 08/14/17 08/15/17 08/16/17 11:59 11:59 11:59 11:59 Intake Total 1580 / 1580 Output Total 1100 / 1100 Balance -1100 / -1100 1580 / 1580 Weight 172 lb Microbiology Reports for the Last 24 Hours: Microbiology 08/14/17 15:45 Urine,Clean Catch Urine Culture - Preliminary NO GROWTH AFTER 24 HOURS - *Routine Neck Exam Absent: JVD - *Routine Respiratory Exam Present: rales - *Routine Cardiovascular Exam Present: RRR, gallop, S3. Absent: murmur, rubs - *Routine Abdominal Exam Absent: tenderness - *Routine Extremities Exam Absent: edema - *Routine Neurological Exam Present: alert, oriented X3, moving all extremities Progress Note: A&P (1) Congestive heart failure Status: Acute Current Visit: Yes (2) Cardiomyopathy Status: Acute Current Visit: Yes (3) Hypothyroidism Status: Acute Current Visit: Yes (4) Weight loss Status: Acute Current Visit: Yes (5) PATEL (dyspnea on exertion) Status: Acute Current Visit: Yes (6) Paroxysmal nocturnal dyspnea Status: Acute Current Visit: Yes (7) Pericardial effusion Status: Acute Current Visit: Yes (8) Sinus tachycardia Status: Acute Current Visit: Yes (9) Pleural effusion Status: Acute Current Visit: Yes (10) Pneumonia Status: Acute Current Visit: Yes (11) CHF (congestive heart failure), NYHA class III Status: Acute Current Visit: Yes Assessment and Plan for All Diagnoses:: 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 Improved on meds. Switch lasix to PO and Add potassium. Increase lisinopril to 5 mg BID. Ambulate in halls. If LifeVest approved and fitted today, then could be discharged home.
[2017-08-16 14:13] VITALS: BP 138/88
--- NOTE | 2017-08-16 22:09 | Discharge Summary ---
General - General Admission date:: 08/14/17 <Kyle Bradford - 08/20/17 16:35> 08/14/17 <Sonam Parnell - 08/16/17 22:09> Discharge date: 08/16/17 <Sonam Parnell - 08/16/17 22:09> HPI HPI: Mr. Villegas is a 46-year-old white male who was admitted through the emergency room with some rather vague symptoms. He has not been feeling well for months. He had an episode of pneumonia back in March. He has a 16 pound unexplained weight loss. He tires easily with exertion. He has not had recent cough or congestion or sputum production but he has been SOA. He has not had fever. He has not traveled outside the country. Others in his family have not been ill. He has felt some GI distress. His bowels have been normal. He has had no vomiting or diarrhea. His workup in the emergency room showed some patchy infiltrates in the lungs. There was also evidence of a mild pericardial effusion. He was admitted for further evaluation and treatment. <Sonam Parnell - 08/16/17 22:09> Hospital Course Hospital Course: The patient had a CXR showing CHF with interstitial edema and small bilateral effusions. He had a CTA as well showing no PE but cardiomegaly with bilateral effusions as well as a pericardial effusion and a possible pneumonia in the LLL. He was started on abx. Cardiology saw the patient an ordered an echo. It showed an EF of 15-20%. He had a heart cath that showed no blockages, but severe heart failure. 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 They also recommended the patient start coumadin and bridge with lovenox until INR is 2-3. He had a repeat CXR showing no pneumonia and improvement in his CHF. His abx were stopped. The patient had his lifevest placed and was stable to be discharged home. He will f/u with cardiology. <Sonam Parnell - 08/16/17 22:09> Objective Vital signs: Temp Pulse Resp BP Pulse Ox 98.0 F 82 16 138/88 94 L 08/16/17 12:00 08/16/17 12:00 08/16/17 12:00 08/16/17 12:00 08/16/17 12:00 <Kyle Bradford - 08/20/17 16:35> Temp Pulse Resp BP Pulse Ox 98.0 F 82 16 138/88 94 L 08/16/17 12:00 08/16/17 12:00 08/16/17 12:00 08/16/17 12:00 08/16/17 12:00 <Sonam Parnell - 08/16/17 22:09> Narrative: - Constitutional no acute distress - *Routine HEENT Exam Head: Present: normocephalic, atraumatic Eye: Present: EOMI ENT: Present: mucous membranes dry - *Routine Neck Exam Present: supple, full ROM - *Routine Respiratory Exam Present: CTA bilaterally - *Routine Cardiovascular Exam Present: RRR - *Routine Abdominal Exam Present: soft, normoactive bowel sounds. Absent: tenderness - *Routine Extremities Exam Absent: edema - *Routine Skin Exam Present: intact - *Routine Neurological Exam Present: alert, oriented X3 <Sonam Parnell - 08/16/17 22:09> Results Labs on day of discharge: Labs from last 24 hours 08/16/17 08/14/17 05:28 23:05 Sodium 138 Potassium 4.0 Chloride 102 Carbon Dioxide 29 D Anion Gap 11.0 BUN 23 H D Creatinine 1.55 H Estimated Creat Clear 67 Estimated GFR 49 L Est GFR ( Amer) 59 Glucose 88 D Calcium 8.6 Prostate Specific Ag 1.1 Free PSA 0.28 % Free PSA 25.5 <Sonam Parnell - 08/16/17 22:09> DS: Diagnosis - Discharge Diagnosis (1) Congestive heart failure Status: Acute (2) Cardiomyopathy Status: Acute (3) Hypothyroidism Status: Acute (4) Weight loss Status: Acute (5) PATEL (dyspnea on exertion) Status: Acute (6) Paroxysmal nocturnal dyspnea Status: Acute (7) Pericardial effusion Status: Acute (8) Sinus tachycardia Status: Acute (9) Pleural effusion Status: Acute (10) Pneumonia Status: Acute (11) CHF (congestive heart failure), NYHA class III Status: Acute <Sonam Parnell - 08/16/17 21:59> (1) Congestive heart failure Status: Acute (2) Cardiomyopathy Status: Acute (3) Hypothyroidism Status: Acute (4) Weight loss Status: Acute (5) PATEL (dyspnea on exertion) Status: Acute (6) Paroxysmal nocturnal dyspnea Status: Acute (7) Pericardial effusion Status: Acute (8) Sinus tachycardia Status: Acute (9) Pleural effusion Status: Acute (10) Pneumonia Status: Acute (11) CHF (congestive heart failure), NYHA class III Status: Acute <Kyle Bradford - 08/20/17 16:35> Discharge Plan - Patient Discharge Instructions ACTIVITY: Limited activity <Sonam Parnell - 08/16/17 22:09> DIET: continue same diet <Sonam Parnell - 08/16/17 22:09> Patient Instructions: Warfarin (Alternative Therapy), Heart-Healthy Diet, Warfarin, Coumadin Vitamin K/ Diet, Coumadin Therapy Booklet <Kyle Bradford - 08/20/17 16:35> Forms: <Kyle Bradford - 08/20/17 16:35> - Follow up Plan Follow up with: Alexandre Prescott MD [Staff Physician] - 1 week Kyle Bradford MD [Primary Care Provider] - 1 week <Kyle Bradford - 08/20/17 16:35> Disposition: Home, Self-Care <Kyle Bradford - 08/20/17 16:35> Home Medications: Home Medications Medication Instructions Recorded Confirmed Type Triamcinolone Acetonide [Nasal 1 spray NS DAILY 08/14/17 08/15/17 History Allergy] <Kyle Bradford - 08/20/17 16:35> Prescriptions/Medication Reconciliation: New Carvedilol [Coreg 3.125mg Tablet] 3.125 mg PO BID #60 tab Enoxaparin Sodium [Lovenox 80mg/0.8mL syringe] 80 mg SQ Q12H #14 syringe Furosemide [Lasix 40mg tablet] 40 mg PO DAILY #30 tab Lisinopril [Zestril 5mg Tablet] 5 mg PO BID #60 tab Potassium Chloride [Klor-con 20 mEq tablet] 20 meq PO DAILY #30 tab Warfarin Sodium [Coumadin 5mg tablet] 5 mg PO COUMADIN #30 tab Digoxin [Digoxin 0.125mg Tablet] 125 mcg PO DAILY #30 tab Continue Triamcinolone Acetonide [Nasal Allergy] 1 spray NS DAILY <Kyle Bradford - 08/20/17 16:35> - Additional Information Additional Information: Concur with plan for discharge and f/u with Dr. AIKEN <Kyle Bradford - 08/20/17 16:35>
== END 2017-08-16 16:40 | disposition home or self-care (01) ==
LOC: 2ND 15:11 → ER 15:11 → OBSVTOIN 21:00 → 2ND 21:02
PROVIDERS: ADMIT Family Medicine; ATTEND Family Medicine

== ENCOUNTER → 2017-09-23 07:34 | Outpatient (CLI) | payer BC, SELFPAY ==
--- NOTE | 2017-09-23 07:35 | CA_ITS ---
PROCEDURE: 2-D M-mode and color Doppler study INDICATIONS FOR THE TEST: Chest pain COPD Heart Murmur Tobacco Smoking Palpitations Fatigue Syncope Edema Hypertension Diabetes Mellitus Rheumatic Fever SOB PATEL Obesity Hyperlipidemia Family History HD Additional History CM CHF EF ECHO 08/15/17 15-20% ON LIFEVEST PATIENT INFORMATION HEIGHT:72 WEIGHT:169 GENDER: Male B/P:127/73 2-D/M-MODE INTERPRETATION: 2-D MEASUREMENTS OBSERVED VALUES IN CMS Right Ventricular Dimension (RVDd) 1.2 Interventricular Septum (Thickness)(IVsd) .9 Left Ventricular Internal Dimensions(LVIDd) 7.1 Left Ventricular Posterior Wall (Thickness)(LVPWd) .9 Aortic Root 3.9 Aortic Cusp Separation 2.0 Left Atrial Dimensions (LAD) 3.0 2D 1. Left atrium is mildly enlarged, left ventricle is mildly dilated, there is no concentric left ventricular hypertrophy, visually estimated ejection fraction approximately 20-25%, left ventricle is globally hypokinetic. 2. The right atrium and right ventricle are normal size and contractility. 3. The aortic valve is minimally thickened and fibrosed. 4. The mitral and tricuspid valve leaflets are minimally thickened. 5. The pulmonic valve is poorly visualized. 6. No significant pericardial effusion noted. DOPPLER INTERROGATION: Doppler interrogation of the aortic, mitral and tricuspid valvular presence of mild mitral and tricuspid regurgitation, tricuspid and jet velocity is insufficient for calculation of the right ventricular systolic pressure, grade 1 diastolic dysfunction seen with tissue Doppler evidence of raised left atrial pressure. CONCLUSION: 1. Mildly enlarged left atrium, mildly dilated left ventricle, severely reduced left ventricular systolic function, visually estimated ejection fraction of 20-25%, left ventricle is globally hypokinetic, grade 1 diastolic dysfunction seen with tissue Doppler evidence of raised left atrial pressure. 2. Mild mitral and tricuspid regurgitation 3. No significant pericardial effusion noted.
== END ==
PROVIDERS: Family Provider Family Medicine; PCP Family Medicine; Visit Provider Internal Medicine
DX: I50.9 Heart failure, unspecified (principal)
CPT/HCPCS: 93306

== ENCOUNTER → 2017-10-24 12:19 | Outpatient (CLI) | payer BC, SELFPAY ==
[2017-10-24 14:19] LABS: Anion Gap 11.8 mEq/L (5-15); Blood Urea Nitrogen 8 mg/dL (7-18); Calcium 8.9 mg/dL (8.5-10.1); Carbon Dioxide 30 mmol/L (21.0-32.0); Chloride 105 mmol/L (98-107); Creatinine,Serum 1.05 mg/dL (0.70-1.30); Digoxin 0.46 ng/mL (1.15-2.56); Estimated Glomerular Filt Rate 76 ml/min (>60); GFR (African American) 92 ML/MIN (>60); Glucose 100 mg/dL (74-106); Potassium 4.8 mmoL/L (3.5-5.1); Sodium 142 mmol/L (136-145)
== END ==
PROVIDERS: Physician Assistant; Family Provider Family Medicine; PCP Family Medicine; Visit Provider Internal Medicine Cardiovascular Disease
DX: R06.00 Dyspnea, unspecified (principal); I42.0 Dilated cardiomyopathy; I50.9 Heart failure, unspecified; B33.24 Viral cardiomyopathy
CPT/HCPCS: 80048; 80162; 83880

== ENCOUNTER → 2017-10-31 14:38 | Outpatient (CLI) | payer BC, SELFPAY ==
[2017-10-31 17:52] LABS: Anion Gap 13.6 mEq/L (5-15); Blood Urea Nitrogen 10 mg/dL (7-18); Calcium 9.2 mg/dL (8.5-10.1); Carbon Dioxide 28 mmol/L (21.0-32.0); Chloride 105 mmol/L (98-107); Creatinine,Serum 1.11 mg/dL (0.70-1.30); Estimated Glomerular Filt Rate 72 ml/min (>60); GFR (African American) 87 ML/MIN (>60); Glucose 99 mg/dL (74-106); Potassium 4.6 mmoL/L (3.5-5.1); Sodium 142 mmol/L (136-145)
== END ==
PROVIDERS: PCP Family Medicine; Visit Provider Internal Medicine Cardiovascular Disease
DX: E03.9 Hypothyroidism, unspecified (principal); I42.9 Cardiomyopathy, unspecified; I47.2 Ventricular tachycardia; I50.9 Heart failure, unspecified; R06.09 Other forms of dyspnea
CPT/HCPCS: 36415; 80048

== ENCOUNTER → 2017-12-02 12:28 | Outpatient (CLI) | payer BC, SELFPAY ==
--- NOTE | 2017-12-02 12:31 | NM_ITS ---
Gated cardiac MUGA scan Indication for the test: Dilated cardiomyopathy, evaluate left ventricular systolic function to guide further therapy. Procedure: Patient received a total of 27.0 mCi of technetium 99 sodium pretechnitate, resting MUGA scan was performed with standard view. Results: Resting MUGA scan showed an ejection fraction of 42% with mild left ventricular global hypokinesis.
--- NOTE | 2017-12-02 13:08 | HMH.ITSHM ---
Current Home Medications as stated by this patient Nelson Villegas or practice representative. []SACUBITRIL MONTELUKAST FUROSEMIDE DIGOXIN CARVEDILOL WARFARIN POTASSIUM
== END ==
PROVIDERS: Family Provider Family Medicine; PCP Family Medicine; Visit Provider Internal Medicine Cardiovascular Disease
DX: I42.9 Cardiomyopathy, unspecified (principal); R06.9 Unspecified abnormalities of breathing; I47.2 Ventricular tachycardia; I50.9 Heart failure, unspecified; E03.9 Hypothyroidism, unspecified
CPT/HCPCS: 78473; A9512; A9560

== ENCOUNTER → 2018-03-31 07:32 | Outpatient (CLI) | payer OTHER, SELFPAY | PROVIDERS: PCP Family Medicine; Visit Provider Internal Medicine Cardiovascular Disease | DX: B33.24 Viral cardiomyopathy (principal); I42.0 Dilated cardiomyopathy; I50.9 Heart failure, unspecified; I51.9 Heart disease, unspecified; Z79.01 Long term (current) use of anticoagulants | CPT/HCPCS: 93306 ==

== ENCOUNTER → 2018-06-20 11:47 | Outpatient (CLI) | payer OTHER, SELFPAY ==
[2018-06-20 13:17] LABS: Anion Gap 11.5 mEq/L (5-15); Blood Urea Nitrogen 12 mg/dL (7-18); Calcium 8.8 mg/dL (8.5-10.1); Carbon Dioxide 30 mmol/L (21.0-32.0); Chloride 103 mmol/L (98-107); Creatinine,Serum 0.96 mg/dL (0.70-1.30); Estimated Glomerular Filt Rate 85 ml/min (>60); GFR (African American) 102 ML/MIN (>60); Glucose 108 mg/dL (74-106); Potassium 4.5 mmoL/L (3.5-5.1); Sodium 140 mmol/L (136-145)
== END ==
PROVIDERS: Visit Provider Internal Medicine Cardiovascular Disease
DX: B33.24 Viral cardiomyopathy (principal); I50.9 Heart failure, unspecified; I51.9 Heart disease, unspecified
CPT/HCPCS: 36415; 80048

== ENCOUNTER → 2019-02-03 08:22 | Outpatient (CLI) | payer OTHER, SELFPAY | PROVIDERS: PCP Family Medicine; Visit Provider Urology | DX: B33.24 Viral cardiomyopathy (principal); I50.9 Heart failure, unspecified; I51.9 Heart disease, unspecified | CPT/HCPCS: 93306 ==

== ENCOUNTER → 2019-12-21 09:56 | Outpatient (CLI) | payer OTHER, SELFPAY ==
[2019-12-21 10:29] LABS: Alanine Aminotransferase 30 U/L (12-78); Albumin Level 4.8 g/dl (3.5-5.0); Alkaline Phosphatase 69 U/L (38-126); Aspartate Amino Transferase 39 U/L (17-59); Bilirubin,Direct 0.1 mg/dl (0.0-0.4); Bilirubin,Indirect 0.5 mg/dL (0.0-0.9); Bilirubin,Total 0.6 mg/dl (0.2-1.3); Bilirubin,Unconjugated 0.5 mg/dL (0.0-1.1); Cholesterol 230 mg/dl (140-200)
[2019-12-21 10:30] LABS: Chol/HDL Ratio 9.2 (1-3.5); HDL Cholesterol 25 mg/dl (40-60)
[2019-12-21 10:37] LABS: Triglycerides 1058 mg/dl (30-150)
[2019-12-21 10:41] LABS: Direct LDL Cholesterol 51.99 mg/dL (100-129)
== END ==
PROVIDERS: Nurse Practitioner Family; Visit Provider Internal Medicine Cardiovascular Disease
DX: B33.24 Viral cardiomyopathy (principal); I50.9 Heart failure, unspecified; I51.9 Heart disease, unspecified
CPT/HCPCS: 36415; 80061; 80076

== ENCOUNTER 2020-03-04 02:58 | Emergency (ER) | payer OTHER, SELFPAY ==
[2020-03-04 03:00] VITALS: BP 159/100; PULSE 86; RESP 16; TEMP 36.7; O2SAT 98; BMI 25.1
--- NOTE | 2020-03-04 03:18 | CT_ITS ---
PROCEDURE: CT SINUS W CON CLINICAL HISTORY: facial swelling. Right-sided facial swelling COMPARISON: No exams were available for comparison TECHNIQUE: Axial images obtained with sagittal and coronal reformats. All CT scans at the facility use one or more dose reduction, viz: automated exposure control, ma/kV adjustment per patient size (including targeted exams where dose is matched to indication, i.e. head), or iterative reconstruction technique. FINDINGS: Minimal mucosal thickening involves the maxillary sinuses and ethmoid sinuses. No sinus air-fluid level. The sphenoid and frontal sinuses are unremarkable. No mastoid effusion. The Right maxillary mandibular soft tissue swelling with subcutaneous induration noted. No evidence of abscess. There are scattered shoddy cervical lymph nodes. There are impacted bilateral mandibular molars. There is degenerative disc disease at C5-C6 with canal stenosis IMPRESSION: Right-sided facial cellulitis. No abscess. No evidence of acute sinusitis. Bilateral impacted maxillary molars Dictated by: New Boone MD 03/04/2020 05:32 New Boone MD in OV 03/04/2020 05:32
--- NOTE | 2020-03-04 03:25 | PC.NURSE ---
pt to RAD
[2020-03-04 03:30] VITALS: BP 142/78; PULSE 81; RESP 16; O2SAT 99
[2020-03-04 03:39] LABS: Basophils # 0.1 K/mm3 (0-0.2); Basophils % 0.8 % (0.1-2.0); Eosinophils # 0.5 K/mm3 (0.0-0.4); Eosinophils % 4.5 % (0.1-12.0); Hemoglobin 15.6 g/dL (14.1-18.0); Lymphocytes # 2.6 K/mm3 (0.7-4.5); Lymphocytes % 24.8 % (10-50); Mean Corpuscular HGB Conc 34.6 g/dL (31.8-35.4); Mean Corpuscular Hemoglobin 30.3 pg (27.0-31.2); Mean Corpuscular Volume 87.6 fl (80-94); Mean Platelet Volume 7.1 fl (7.4-10.4); Monocytes # 0.6 K/mm3 (0.1-1.0); Monocytes % 5.9 % (1.7-9.3); Neutrophils # 6.7 K/mm3 (1.8-7.8); Platelet Count 294 K/mm3 (142-424); Red Blood Count 5.14 M/mm3 (4.60-6.20); Red Cell Distribution Width 13.9 % (11.5-17.5); White Blood Count 10.5 K/mm3 (4.8-10.8)
[2020-03-04 03:41] LABS: Chloride 103 mmol/L (98-107); Potassium 3.5 mmoL/L (3.5-5.1); Sodium 141 mmol/L (136-145)
[2020-03-04 03:43] LABS: Blood Urea Nitrogen 17 mg/dl (9-20); Creatinine Clearance Estimated 103 mL/min (50-200); Estimated Glomerular Filt Rate 80 ml/min (>60); GFR (African American) 97 ML/MIN (>60)
[2020-03-04 03:44] LABS: Alanine Aminotransferase 30 U/L (12-78); Albumin Level 4.8 g/dl (3.5-5.0); Albumin/Globulin Ratio 1.4 (1.1-1.8); Alkaline Phosphatase 87 U/L (38-126); Anion Gap 13.5 mEq/L (5-15); Aspartate Amino Transferase 33 U/L (17-59); Bilirubin,Total 0.7 mg/dl (0.2-1.3); Calcium 9.4 mg/dl (8.4-10.2); Carbon Dioxide 28 mmol/L (22.0-30.0); Globulin 3.4 g/dL (1.3-3.2); Glucose 133 mg/dl (74-100); Lactic Acid 1.9 mmol/L (0.7-2.1); Total Protein,Serum 8.2 g/dl (6.3-8.2)
[2020-03-04 03:50] LABS: C-Reactive Protein 21.6 mg/L (0-4)
--- NOTE | 2020-03-04 03:50 | PC.NURSE ---
pt back from RAD
[2020-03-04 04:08] LABS: Erythrocyte Sedimentation Rate 16 mm/hr (0-15)
--- NOTE | 2020-03-04 04:22 | HMH.EDDENT ---
ED Disposition Clinical Impression: Diffuse cellulitis of face, Dental caries Disposition: Home, Self-Care Condition on Discharge: Good Instructions: DI for Dental Pain Additional Instructions: use meds and see pcp and dentist for follo wup Prescriptions: clindamycin HCL [Clindamycin HCl] 300 mg PO TID #30 cap Transmission Status: Pending to [facility]/pharmacy #[id number] Referrals: yKle Bradford MD [Primary Care Provider] - - Critical Care Critical Care Time: No Attestation: On 03/04/20, the high probability of a clinically significant, sudden or life threatening deterioration of the following system(s) required my full and direct attention, intervention and personal management. The time I documented below is in addition to time spent performing reported procedures but includes the following listed in this critical care notation. Medical Decision Making - Medical Records Medical records reviewed: Yes: I reviewed the patient's medical records. - Oliver Inquiry Pt receiving controlled substance: No Vital Signs: 03/04/20 03:00 Temperature 98.1 F Temperature Source Oral Pulse Rate [Left Radial] 86 Respiratory Rate 16 Blood Pressure [Right Arm] 159/100 H Blood Pressure Mean [Right Arm] 119 Blood Pressure Source [Right Arm] Automatic Cuff Blood Pressure Position [Right Arm] Sitting 02 Sat by Pulse Oximetry 98 Oxygen Delivery Method Room Air - Lab Data Lab results reviewed: Yes: I reviewed the patient's lab results. Lab Results 03/04/20 03:25: WBC 10.5, RBC 5.14, Hgb 15.6, Hct 45.0, MCV 87.6, MCH 30.3, MCHC 34.6, RDW 13.9, Plt Count 294, MPV 7.1 L, Neut % (Auto) 64.0, Lymph % (Auto) 24.8, Cross % (Auto) 5.9, Eos % (Auto) 4.5, Baso % (Auto) 0.8, Neut # (Auto) 6.7, Lymph # (Auto) 2.6, Cross # (Auto) 0.6, Eos # (Auto) 0.5 H, Baso # (Auto) 0.1 03/04/20 03:25: Sodium 141, Potassium 3.5, Chloride 103, Carbon Dioxide 28, Anion Gap 13.5, BUN 17, Creatinine 1.00, Estimated Creat Clear 103, Estimated GFR 80, Est GFR ( Amer) 97, Glucose 133 H, Calcium 9.4, Total Bilirubin 0.7, AST 33, ALT 30, Alkaline Phosphatase 87, C-Reactive Protein 21.6 H, Total Protein 8.2, Albumin 4.8, Globulin 3.4 H, Albumin/Globulin Ratio 1.4 03/04/20 03:25: ESR 16 H 03/04/20 03:25: Lactate 1.9 Result diagrams: 03/04/20 03:25 03/04/20 03:25 Orders (Tests/Meds): ED MEDICATIONS Generic Name Dose Route Start Last Admin Trade Name Freq PRN Reason Stop Dose Admin Ceftriaxone Sodium 1 gm/ 50 mls @ 100 mls/hr 03/04/20 04:30 Sodium Chloride IV 03/18/20 04:29 Q24H ARIEL Protocol Discontinued Medications Generic Name Dose Route Start Last Admin Trade Name Freq PRN Reason Stop Dose Admin Acetaminophen/Codeine Phosphate 1 ronal 03/04/20 04:19 Acetaminophen 300mg W/Codeine 30mg Take Home Pack (6) PO 03/04/20 04:20 ONCE ONE Clindamycin HCl 300 mg 03/04/20 04:19 Clindamycin 150mg Capsule PO 03/04/20 04:20 ONCE ONE Protocol Iopamidol 75 ml 03/04/20 04:08 03/04/20 03:35 Iopamidol-370 (76%);100ml Bottle IV 03/04/20 04:09 75 ml ONCE ONE Administration Ketorolac Tromethamine 30 mg 03/04/20 04:21 Ketorolac 30mg/Ml Vial IV 03/04/20 04:22 ONCE ONE Methylprednisolone Sodium Succinate 125 mg 03/04/20 04:21 Methylprednisolone Sod Succ 125mg Vial IV 03/04/20 04:22 ONCE ONE Sodium Chloride 10 ml 03/04/20 04:08 03/04/20 03:35 Sodium Chloride 0.9% 10ml Syr (Rad Only) IV 03/04/20 04:09 10 ml ONCE ONE Administration ORDERS Category Date Time Status CT sinus w con Stat Cat Scan 03/04/20 03:18 Taken Blood Culture Stat Micro 03/04/20 03:25 Received - CT Data CT Scan: Other (facial ) Time Received: 04:[address] Reviewed: Yes: I have viewed the radiologist's interpretation Preliminary Findings: Abnormal (no abscess ) Dental HPI - General Chief complaint: Dental/Oral Stated complaint: Face swelling,? bad tooth Time Seen by Provider:
[2020-03-04 04:43] VITALS: BP 136/54; PULSE 83; RESP 16; TEMP 36.6; O2SAT 99
== END 2020-03-04 04:44 | disposition home or self-care (01) ==
PROVIDERS: Emergency Provider Emergency Medicine; PCP Family Medicine
DX: L03.211 Cellulitis of face (principal); K02.9 Dental caries, unspecified; I10 Essential (primary) hypertension; E03.9 Hypothyroidism, unspecified; Z79.899 Other long term (current) drug therapy; Z87.891 Personal history of nicotine dependence
CPT/HCPCS: 70487; 80053; 83605; 85025; 85651; 86140; 87040; 96365; 96375; 99283; Q9967

== ENCOUNTER 2020-03-06 18:39 | Emergency (ER) | payer OTHER, SELFPAY ==
[2020-03-06 18:45] VITALS: BP 124/79; PULSE 85; RESP 19; TEMP 38.2; O2SAT 98; BMI 23.3
--- NOTE | 2020-03-06 19:21 | HMH.EDUTC ---
[facility] [place] Clinical Impression: Diffuse cellulitis of face, Dental caries Disposition: Home, Self-Care Condition on Discharge: Good Instructions: Tooth Abscess, Cellulitis Additional Instructions: *Continue taking Clindamycin and Start antibiotic Augmentin immediately and be sure to take as ordered for the FULL length of time although you may be feeling better or start to see improvement in the next 24-48 hours Make sure to take Probiotic to help with the GI symptoms sometimes caused with these medications Make sure to eat Yogurt this will help to coat the stomach and prevent GI upset *Monitor closely. Outlined redness so that you can monitor easier. Follow up immediately for new or worsening symptoms including but not limited to redness, swelling, streaking from site fever or chills. *Warm compress 15 minutes 3-4 times day *Never squeeze or pop these on your own. Seek immediate medical attention next time this occurs *Monitor Temp. Tylenol every 4 hours as needed and ibuprofen every 6 hours as needed (as long as your primary care doctor has told you that it is ok to take both. For fever, aches, pain. ER if no less that 101 despite Tylenol and ibuprofen Follow up with your family doctor/primary care physician in the next 48-72 hours if no improvement Make sure to call Dentist tomorrow for appointment and/or follow up with your Family Doctor for further treatment and evaluation Prescriptions: Amoxicillin/Potassium Clav [Augmentin 875-125 Tablet] 1 tab PO Q12H 10 Days #20 tab Transmission Status: Pending to [facility]/pharmacy #[id number] Lactobacillus Acidophilus [Probiotic Acidophilus] 1 each PO DAILY 10 Days #10 tab Transmission Status: Pending to [facility]/pharmacy #[id number] Referrals: Kyle Bradford MD [Primary Care Provider] - As needed Forms: Work/School Release Time of Disposition: 19:40 Medical Decision Making - Oliver Inquiry Pt receiving controlled substance: No Oliver was queried for this patient: No Vital Signs: 03/06/20 18:45 Temperature 100.7 F H Temperature Source Oral Pulse Rate [Right Brachial] 85 Respiratory Rate 19 Blood Pressure [Right Arm] 124/79 Blood Pressure Mean [Right Arm] 94 Blood Pressure Source [Right Arm] Automatic Cuff Blood Pressure Position [Right Arm] Sitting 02 Sat by Pulse Oximetry 98 Oxygen Delivery Method Room Air Medical Decision Narrative: Patient currently taking Clindamycin discussed with pharmacy nutrition representative and agreed will have him to continue Clindamycin and add Augmentin bid x 10 days and give probiotic due to worsening of symptoms and patient advised to call Dentist first thing in the morning for further evaluation and treatment [facility] [place]PI - General Stated complaint: fever from infection of tooth Time Seen by Provider: 03/06/20 19:21 Mode of Arrival: Ambulatory Source of Information: Patient Limitations: No Limitations Description of Symptoms (Recalled from Triage Doc. by RN): PATIENT C/O INFECTED TOOTH WITH FACIAL SWELLING AND FEVER SINCE SATURDAY HEENT Symptoms (Recalled from RN notes): Yes Resp Symptoms (Recalled from RN notes): No Skin Symptoms (Recalled from RN notes): No MS Symptoms (Recalled from RN notes): No Functional Status (Recalled from RN notes): WNL - History of Present Illness Provider Complaint: Patient states that he was seen in the ER a few days ago and started on antiobiotics States that he has been taking them and today still was having some swelling and has had fever on and off State that this evening it looked like it was swelling more and he had a hard area that he noticed on his right cheek area beside his nose and above his teeth and gums is starting to swell States that he was worried that the infection was getting worse and moving up his face so he came in States that he has had similar symptoms before with abscessed tooth - Related Data Home Medications Medication Instructions Recorded Confirmed clindamycin HCl 150 mg capsule 150 mg PO QID ca
[2020-03-06 19:38] VITALS: BP 124/79; PULSE 85; RESP 19; TEMP 38.2; O2SAT 98
== END 2020-03-06 19:40 | disposition home or self-care (01) ==
PROVIDERS: Emergency Provider Nurse Practitioner; PCP Family Medicine
DX: L03.211 Cellulitis of face (principal); K02.9 Dental caries, unspecified; I10 Essential (primary) hypertension; F17.210 Nicotine dependence, cigarettes, uncomplicated
CPT/HCPCS: 99202; G0463

== ENCOUNTER → 2020-06-20 12:41 | Outpatient (CLI) | payer OTHER, SELFPAY ==
--- NOTE | 2020-06-20 12:54 | CA_ITS ---
APPROVED REPORT EXAM: Comprehensive 2D, Doppler, and color-flow Echocardiogram Roll Finisher: Genesis Duarte RT(R) Ht: 6 ft 0 in Wt: 182lbs BSA: 2.05 BP: 145/69 mmHg Indications: hx viral CM, LV dysfunction, CHF 2D Dimensions LVOT 2.07 cm (M/F) 1.5-2.5 LVEF (Alfaro's) 43.70 % M: 52 - 72 LV Volume 127.80 mL M: 62 - 150 LV Volume Index 62.64 mL/m2 M: 34 - 74 LA Volume 31.40 mL LA Volume Index 15.39 mL/m2 (M/F) 16-34 M-Mode Dimensions RVDd 1.97 cm (0.9-2.6) LVDd 5.30 cm (3.5-5.7) LVDs 4.37 cm (3.5-5.7) IVSd 0.90 cm (0.6-1.1) PWd 0.68 cm (0.6-1.1) EF (Teich) 36.20% FS 17.50% EDV (Teich) 135.30 mL ESV (Teich) 86.30 mL LV Diastology E Decel Time 217.00 (160-240 msec) E/A Ratio 0.8 MED E' 5.20 (< 7 cm/sec) E'/MED E' Ratio 13.94 (>14) LAT E' 10.10 (<10 cm/sec) E/LAT E' Ratio 7.18 (>14) Mitral Valve MV E Max [place]. 73.00 (40-130 cm/s) MV A Velocity 88.00 (40-130 cm/s) E/A Ratio 0.82 MV Decel. Time 217.00 (160-240 ms) MV PHT 63.00 ms Left Ventricle Left atrium is mildly enlarged, left ventricle is normal size, visually estimated ejection fraction 40 to 45%, left ventricle is mildly globally hypokinetic. Diastolic parameters are inconclusive. Right Ventricle Right atrium and right ventricle are normal size and contractility. Aortic Valve Aortic valve is minimally thickened and fibrosed, there is no aortic stenosis or aortic insufficiency. Mitral Valve Mitral valve grossly normal, there is trace mitral regurgitation. Tricuspid Valve Tricuspid valve grossly normal, there is trace tricuspid regurgitation. Pulmonic Valve Pulmonic valve is poorly visualized. Great Vessels Aortic root is normal size. Pericardium No significant pericardial effusion noted. Conclusion 1. Left atrium is mildly enlarged, normal left ventricular size, visually estimated ejection fraction 40 to 45%, left ventricle is globally hypokinetic. Diastolic parameters are inconclusive 2. Trace mitral and tricuspid regurgitation. 3. No significant pericardial effusion noted. Electronically signed by : Alexandre Prescott, 06/20/2020 18:09:25
[2020-06-20 13:51] LABS: Basophils # 0.1 K/mm3 (0-0.2); Basophils % 0.9 % (0.1-2.0); Eosinophils # 0.3 K/mm3 (0.0-0.4); Eosinophils % 4.7 % (0.1-12.0); Hematocrit 46.4 % (42.0-52.0); Hemoglobin 15.4 g/dL (14.1-18.0); Lymphocytes # 2.7 K/mm3 (0.7-4.5); Lymphocytes % 38.5 % (10-50); Mean Corpuscular HGB Conc 33.1 g/dL (31.8-35.4); Mean Corpuscular Volume 87.5 fl (80-94); Mean Platelet Volume 7.4 fl (7.4-10.4); Monocytes # 0.3 K/mm3 (0.1-1.0); Monocytes % 4.9 % (1.7-9.3); Neutrophils # 3.6 K/mm3 (1.8-7.8); Neutrophils % 51.1 % (37.0-80.0); Platelet Count 283 K/mm3 (142-424); Red Cell Distribution Width 14.1 % (11.5-17.5)
[2020-06-20 14:15] LABS: Chloride 103 mmol/L (98-107); Sodium 138 mmol/L (136-145)
[2020-06-20 14:16] LABS: Potassium 4.7 mmoL/L (3.5-5.1)
[2020-06-20 14:18] LABS: Alanine Aminotransferase 44 U/L (12-78); Albumin Level 4.8 g/dl (3.5-5.0); Alkaline Phosphatase 68 U/L (38-126); Anion Gap 13.7 mEq/L (5-15); Aspartate Amino Transferase 38 U/L (17-59); Bilirubin,Direct 0.3 mg/dl (0.0-0.4); Bilirubin,Indirect 0.2 mg/dL (0.0-0.9); Bilirubin,Total 0.5 mg/dl (0.2-1.3); Bilirubin,Unconjugated 0.3 mg/dL (0.0-1.1); Blood Urea Nitrogen 15 mg/dl (9-20); Calcium 10.1 mg/dl (8.4-10.2); Carbon Dioxide 26 mmol/L (22.0-30.0); Cholesterol 224 mg/dl (140-200); Estimated Glomerular Filt Rate 90 ml/min (>60); GFR (African American) 109 ML/MIN (>60); Glucose 106 mg/dl (74-100); Total Protein,Serum 7.5 g/dl (6.3-8.2)
[2020-06-20 14:19] LABS: HDL Cholesterol 28 mg/dl (40-60)
[2020-06-20 14:29] LABS: Direct LDL Cholesterol 97.66 mg/dL (100-129)
[2020-06-20 14:30] LABS: Triglycerides 619 mg/dl (30-150)
== END ==
PROVIDERS: PCP Family Medicine; Visit Provider Nurse Practitioner Family
DX: B33.24 Viral cardiomyopathy (principal); I51.9 Heart disease, unspecified; I42.9 Cardiomyopathy, unspecified; Z79.899 Other long term (current) drug therapy
CPT/HCPCS: 36415; 80048; 80061; 80076; 85025; 93306

== ENCOUNTER → 2021-10-04 09:28 | Outpatient (CLI) | payer OTHER, SELFPAY ==
[2021-10-04 11:07] LABS: Alanine Aminotransferase 59 U/L (12-78); Albumin Level 4.3 g/dl (3.5-5.0); Alkaline Phosphatase 103 U/L (38-126); Aspartate Amino Transferase 43 U/L (17-59); Bilirubin,Direct 0.2 mg/dl (0.0-0.4); Bilirubin,Total 0.2 mg/dl (0.2-1.3); Bilirubin,Unconjugated 0.1 mg/dL (0.0-1.1); Chol/HDL Ratio 9.8 (1-3.5); Cholesterol 225 mg/dl (140-200); HDL Cholesterol 23 mg/dl (40-60)
[2021-10-04 11:14] LABS: Triglycerides 1314 mg/dl (30-150)
[2021-10-05 15:17] LABS: Direct LDL Cholesterol 46 mg/dL (100-129)
== END ==
PROVIDERS: PCP Family Medicine; Visit Provider Nurse Practitioner
DX: E78.5 Hyperlipidemia, unspecified (principal)
CPT/HCPCS: 36415; 80061; 80076

== ENCOUNTER → 2022-10-23 13:31 | Outpatient (CLI) | payer BC, SELFPAY ==
--- NOTE | 2022-10-23 13:41 | CA_ITS ---
APPROVED REPORT EXAM: Comprehensive 2D, Doppler, and color-flow Echocardiogram [place]: Silva Barron RDCS Ht: 6 ft 0 in Wt: 186lbs BSA: 2.07 BP: 120/69 mmHg Indications: Chest Pain, Congenital Heart Disease, Shortness of Breath, Hyperlipidemia, Cardiomyopathy, Hypertension/HDD 2D Dimensions LVOT 2.27 cm (M/F) 1.5-2.5 M-Mode Dimensions RVDd 2.47 cm (0.9-2.6) LA Diam 3.01 cm (1.9-4.0) LVDd 5.62 cm (3.5-5.7) Ao Diam 2.98 cm (2.0-3.7) LVDs 3.97 cm (3.5-5.7) IVSd 1.00 cm (0.6-1.1) PWd 1.14 cm (0.6-1.1) EF (Teich) 55.60% FS 29.40% EDV (Teich) 154.90 mL TAPSE 2.10 (<1.7) ESV (Teich) 68.80 mL LV Diastology E Decel Time 230.00 (160-240 msec) E/A Ratio 0.9 MED E' 6.20 (< 7 cm/sec) E'/MED E' Ratio 10.79 (>14) LAT E' 7.80 (<10 cm/sec) E/LAT E' Ratio 8.58 (>14) Mitral Valve MV E Max [place]. 67.00 (40-130 cm/s) MV A Velocity 73.00 (40-130 cm/s) E/A Ratio 0.92 MV Decel. Time 230.00 (160-240 ms) MV PHT 67.00 ms Left Ventricle The left ventricle is normal size. The left ventricular systolic function is mildly to moderately reduced. There is normal left ventricular wall thickness. There is mild global hypokinesis. There is moderate to severe hypokinesis of the basal septal and inferoseptal LV france. The left ventricular diastolic function is normal. LVEF is 40%. Right Ventricle The right ventricle is normal size. The right ventricular systolic function is normal. Atria The left atrium size is normal. The right atrium size is normal. There is no Doppler evidence of interatrial shunt. Aortic Valve The aortic valve opens well. There is no aortic valvular stenosis. Trace aortic regurgitation. Mitral Valve The mitral valve is normal in structure. No evidence of mitral valve stenosis. Trace mitral regurgitation. Tricuspid Valve The tricuspid valve leaflets are thin and pliable. Trace tricuspid regurgitation. RVSP is 10-15 mmHg. Pulmonic Valve The pulmonary valve is normal in structure. Trace pulmonic regurgitation. Great Vessels The aortic root is normal in size. The ascending aorta is normal in size. IVC is normal in size and collapses >50% with inspiration. Pericardium There is no pericardial effusion. Other Information Study Quality: Fair Conclusion Mildly to moderately reduced LV systolic function (LVEF 40%) Moderate to severe hypokinesis of the septal and inferoseptal LV france No significant valvular disease Electronically signed by : Maria Guadalupe Lai, 10/29/2022 09:05:37
== END ==
LOC: RT 13:32
PROVIDERS: PCP Family Medicine; Visit Provider Nurse Practitioner Family
DX: I50.22 Chronic systolic (congestive) heart failure (principal); I49.3 Ventricular premature depolarization; I42.9 Cardiomyopathy, unspecified; I51.9 Heart disease, unspecified; E78.1 Pure hyperglyceridemia; E78.5 Hyperlipidemia, unspecified
CPT/HCPCS: 93306

== ENCOUNTER 2022-12-04 17:24 | Emergency (ER) | payer BC, SELFPAY ==
[2022-12-04 18:10] VITALS: BP 156/86; PULSE 89; RESP 18; TEMP 36.8; O2SAT 99; BMI 25.0
--- NOTE | 2022-12-04 18:52 | EXP.UTC ---
Discharge Plan Disposition Patient Disposition: Home, Self-Care Condition: Good Prescriptions Prescriptions: No Action allopurinol 100 mg tablet 100 mg PO DAILY PRN rosuvastatin [Crestor] 40 mg tablet 40 mg PO DAILY Qty: 90 3RF furosemide 40 mg tablet See Rx Instructions .ROUTE .COMPLEX Qty: 90 3RF Dose Instruction: TAKE 1 TABLET BY MOUTH EVERY DAY Rx Instructions: TAKE 1 TABLET BY MOUTH EVERY DAY digoxin 125 mcg (0.125 mg) tablet See Rx Instructions .ROUTE .COMPLEX Qty: 90 3RF Dose Instruction: TAKE 1 TABLET BY MOUTH EVERY DAY Rx Instructions: TAKE 1 TABLET BY MOUTH EVERY DAY carvedilol 6.25 mg tablet See Rx Instructions .ROUTE .COMPLEX Qty: 180 3RF Dose Instruction: TAKE ONE TAB BY MOUTH TWO TIMES A DAY Rx Instructions: TAKE ONE TAB BY MOUTH TWO TIMES A DAY fenofibrate 160 mg tablet 160 mg PO DAILY Qty: 30 5RF Entresto 97-103 mg tablet 1 tab PO BID Qty: 180 3RF Referrals Follow up/Referrals: Kyle Bradford MD [Primary Care Provider] - See instructions Activity Restrictions/Add. Instructions Additional Instructions/Restrictions: Call Eye Doctor in the morning and make appointment for tomorrow or the next day Do not wear your Contacts Straight to ER if any life threatening symptoms You was given erythromycin eye ointment in the [facility] place 1cm ribbon of medication in left eye every 4-6 hours as advised Clinical Impressions Clinical Impression: Eye problem Stand Alone Forms Stand Alone Forms: Work/School Release Instructions Patient Instructions: Erythromycin Ophthalmic Discharge ED Provider: Jazmine Marie [facility] HPI General Stated complaint: something in LT eye Mode of Arrival: Ambulatory Source of Information: Patient Limitations: No Limitations Time Seen by Provider: 12/04/22 18:52 Description of Symptoms (Recalled from Triage Doc. 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 State that he took his contacts out when he got home this morning and laid down and when he woke up states that he feels like there is something in his eye States that not sure if something may have got in there while he was sleeping or if he may have scratched his eye or something Related Data Home Medications Medication Instructions Recorded Confirmed allopurinol 100 mg tablet 100 mg PO DAILY PRN 10/04/22 11/22/22 Previous Rx's Medication Instructions Recorded carvedilol 6.25 mg tablet See Rx Instructions .Route 04/05/22 .COMPLEX #180 tabs digoxin 125 mcg (0.125 mg) tablet See Rx Instructions .Route 04/05/22 .COMPLEX #90 tabs furosemide 40 mg tablet See Rx Instructions .Route 04/05/22 .COMPLEX #90 tabs rosuvastatin 40 mg tablet (Crestor) 40 mg PO DAILY #90 tabs 04/05/22 sacubitril 97 mg-valsartan 103 mg 1 tab PO BID #180 tabs 07/31/22 tablet (Entresto) fenofibrate 160 mg tablet 160 mg PO DAILY #30 tabs 10/04/22 Allergies Allergy/AdvReac Type Severity Reaction Status Date / Time No Known Allergies Allergy Verified 11/22/22 08:30 Worker's Comp Is this a Worker's Comp case?: No [facility] Disclaimer: The information contained in this section may have been updated after the patient was seen, as this information can be updated by other users. Medical History Chronic systolic congestive heart failure Hypertriglyceridemia Social History Smoking Status: Former smoker tobacco type: cigarettes packs per day: 1 second hand exposure: Yes alcohol int
[2022-12-04 19:21] VITALS: BP 156/86; PULSE 89; RESP 18; TEMP 36.8; O2SAT 99
== END 2022-12-04 19:27 | disposition home or self-care (01) ==
PROVIDERS: Emergency Provider Nurse Practitioner; PCP Family Medicine
DX: H53.142 Visual discomfort, left eye (principal); I50.22 Chronic systolic (congestive) heart failure; E78.1 Pure hyperglyceridemia; Z87.891 Personal history of nicotine dependence
CPT/HCPCS: 99212; 99214; G0463

== ENCOUNTER 2023-05-27 09:06 | Outpatient (CLI) | payer BC, SELFPAY ==
[2023-05-27 09:19] LABS: Basophils # 0.2 K/mm3 (0-0.2); Basophils % 2.1 % (0.1-2.0); Eosinophils # 0.4 K/mm3 (0.0-0.4); Eosinophils % 4.9 % (0.1-12.0); Hemoglobin 14.4 g/dL (14.1-18.0); Lymphocytes # 3.6 K/mm3 (0.7-4.5); Lymphocytes % 41.9 % (10-50); Mean Corpuscular HGB Conc 33.4 g/dL (31.8-35.4); Mean Corpuscular Hemoglobin 30.2 pg (27.0-31.2); Mean Corpuscular Volume 90.2 fl (80-94); Mean Platelet Volume 7.9 fl (7.4-10.4); Monocytes # 0.4 K/mm3 (0.1-1.0); Monocytes % 4.8 % (1.7-9.3); Neutrophils % 46.3 % (37.0-80.0); Platelet Count 260 K/mm3 (142-424); Red Blood Count 4.76 M/mm3 (4.60-6.20); Red Cell Distribution Width 13.8 % (11.5-17.5); White Blood Count 8.6 K/mm3 (4.8-10.8)
[2023-05-27 10:03] LABS: Alanine Aminotransferase 38 U/L (12-78); Albumin Level 4.8 g/dl (3.5-5.0); Alkaline Phosphatase 63 U/L (38-126); Anion Gap 13.1 mEq/L (5-15); Aspartate Amino Transferase 37 U/L (17-59); Bilirubin,Direct 0.2 mg/dl (0.0-0.4); Bilirubin,Indirect 0.5 mg/dL (0.0-0.9); Bilirubin,Total 0.7 mg/dl (0.2-1.3); Bilirubin,Unconjugated 0.5 mg/dL (0.0-1.1); Blood Urea Nitrogen 22 mg/dl (9-20); Calcium 9.8 mg/dl (8.4-10.2); Carbon Dioxide 25 mmol/L (22.0-30.0); Chloride 106 mmol/L (98-107); Chol/HDL Ratio 3.9 (1-3.5); Cholesterol 129 mg/dl (140-200); Estimated Glomerular Filt Rate 58 ml/min (>60); GFR (African American) 71 ML/MIN (>60); Glucose 97 mg/dl (74-100); HDL Cholesterol 33 mg/dl (40-60); Magnesium 2.2 mg/dl (1.6-2.3); Potassium 4.1 mmoL/L (3.5-5.1); Sodium 140 mmol/L (136-145); Total Protein,Serum 7.3 g/dl (6.3-8.2); Triglycerides 298 mg/dl (30-150); VLDL Cholesterol 60 mg/dL (0-40)
[2023-05-27 10:19] LABS: Free T4 (Free Thyroxine) 0.88 ng/dl (0.78-2.19)
[2023-05-27 10:25] LABS: Direct LDL Cholesterol 66.52 mg/dL (100-129)
== END 2023-05-27 23:59 | disposition home or self-care (01) ==
LOC: LAB 09:06
PROVIDERS: PCP Family Medicine; Visit Provider Physician Assistant
DX: E78.1 Pure hyperglyceridemia (principal); E78.5 Hyperlipidemia, unspecified; I42.0 Dilated cardiomyopathy; I50.22 Chronic systolic (congestive) heart failure; I51.9 Heart disease, unspecified; E03.9 Hypothyroidism, unspecified; Z87.891 Personal history of nicotine dependence
CPT/HCPCS: 36415; 80048; 80061; 80076; 83735; 84439; 84443; 85025

== ENCOUNTER 2024-05-21 08:38 | Outpatient (CLI) | payer BC, SELFPAY ==
[2024-05-21 09:06] LABS: Basophils # 0.1 K/mm3 (0-0.2); Basophils % 1.4 % (0.1-2.0); Eosinophils # 0.3 K/mm3 (0.0-0.4); Hematocrit 41.8 % (42.0-52.0); Hemoglobin 14.3 g/dL (14.1-18.0); Lymphocytes % 30.2 % (10-50); Mean Corpuscular HGB Conc 34.2 g/dL (31.8-35.4); Mean Corpuscular Hemoglobin 29.2 pg (27.0-31.2); Mean Corpuscular Volume 85.3 fl (80-94); Mean Platelet Volume 9.5 fl (7.4-10.4); Monocytes # 0.5 K/mm3 (0.1-1.0); Neutrophils # 3.7 K/mm3 (1.8-7.8); Neutrophils % 56.2 % (37.0-80.0); Nucleated Red Blood Cells # 0 10^3/uL; Nucleated Red Blood Cells % 0 %; Platelet Count 264 K/mm3 (142-424); Red Cell Distribution Width 13.1 % (11.5-17.5); Red Cell Distribution Width-SD 40.3 fL; White Blood Count 6.6 K/mm3 (4.8-10.8)
[2024-05-21 10:05] LABS: Alanine Aminotransferase 53 U/L (12-78); Albumin Level 4.3 g/dl (3.5-5.0); Alkaline Phosphatase 59 U/L (38-126); Anion Gap 14.2 mEq/L (5-15); Aspartate Amino Transferase 48 U/L (17-59); Bilirubin,Direct 0.3 mg/dl (0.0-0.4); Bilirubin,Indirect 0.3 mg/dL (0.0-0.9); Bilirubin,Total 0.6 mg/dl (0.2-1.3); Bilirubin,Unconjugated 0.3 mg/dL (0.0-1.1); Blood Urea Nitrogen 12 mg/dl (9-20); Calcium 9.3 mg/dl (8.4-10.2); Carbon Dioxide 26 mmol/L (22.0-30.0); Chloride 106 mmol/L (98-107); Chol/HDL Ratio 3.9 (1-3.5); Cholesterol 98 mg/dl (140-200); Estimated Glomerular Filt Rate 79 ml/min (>60); GFR (African American) 95 ML/MIN (>60); Glucose 116 mg/dl (74-100); HDL Cholesterol 25 mg/dl (40-60); Potassium 4.2 mmoL/L (3.5-5.1); Sodium 142 mmol/L (136-145); Total Protein,Serum 7.1 g/dl (6.3-8.2); Triglycerides 236 mg/dl (30-150); VLDL Cholesterol 47 mg/dL (0-40)
[2024-05-21 10:16] LABS: Direct LDL Cholesterol 42.71 mg/dL (100-129)
[2024-05-21 10:22] LABS: Free T4 (Free Thyroxine) 0.89 ng/dl (0.78-2.19)
[2024-05-21 10:36] LABS: Thyroid Stimulating Hormone 2.95 uIU/mL (0.465-4.68)
== END 2024-05-21 23:59 | disposition home or self-care (01) ==
LOC: LAB 08:39
PROVIDERS: PCP Family Medicine; Visit Provider Physician Assistant
DX: E78.1 Pure hyperglyceridemia (principal); E78.5 Hyperlipidemia, unspecified; E03.9 Hypothyroidism, unspecified; I42.0 Dilated cardiomyopathy; I50.32 Chronic diastolic (congestive) heart failure
CPT/HCPCS: 36415; 80048; 80061; 80076; 80162; 83735; 84439; 84443; 85025